=== PATIENT | female | born 1950 | race Caucasian/White ===

== ENCOUNTER → 2017-08-24 | Outpatient (CLI) | payer OTHER, MEDICARE ==
[~2017-08-24] MED LIST: ASPEC81 PO; ATOR-26 PO; FEXO1TAB49 PO; FURO-85 PO; LEVO125T72 PO; LISI40TA PO; MISCCAP80 PO; PANT40TA PO
--- NOTE | 2017-08-24 10:32 | DIAGNOSTIC IMAGING REPORT ---
L PELVIS UNILATERAL HIP 1 VIEW CLINICAL HISTORY: LEFT HIP PAIN pain COMPARISON: None. DISCUSSION: Moderate degenerative narrowing left and to lesser extent right hip joint space. No evidence for acetabular protrusion. No evidence for fracture or dislocation. Mild degenerative changes of the sacroiliac joints. There is no evidence for soft tissue swelling. IMPRESSION: Moderate degenerative change left hip. No acute posttraumatic abnormality. The above report was generated using voice recognition software. It may contain grammatical, syntax or spelling errors. Electronically signed by: Hudson Up M.D. 08/24/2017 10:30 AM Dictated Date/Time: 08/24/2017 10:30 AM
== END | disposition home or self-care (01) ==
LOC: C.RDSM 15:04
PROVIDERS: ATTEND Physician Assistant
DX: M16.12 Unilateral primary osteoarthritis, left hip (principal)

== ENCOUNTER → 2018-04-22 | Outpatient (CLI) | payer OTHER, MEDICARE | END | disposition home or self-care (01) | LOC: C.RDSM 10:16 | PROVIDERS: ATTEND Family Medicine Sports Medicine | DX: M25.561 Pain in right knee (principal); M25.562 Pain in left knee ==

== ENCOUNTER 2019-12-01 00:16 | Inpatient (IN) ==
--- NOTE | 2019-12-01 00:18 | Emergency Department Note ---
History of Present Illness General Chief Complaint: Stroke/CVA Symptoms Stated Complaint: Left sided numbness Source: patient Mode of arrival: ambulatory Limitations: no limitations History of Present Illness Provider Complaint: + weakness, + numbness and + balance problems Onset (ago): hour(s) Last Known Well Time: 23:20 Location: + left arm and + left leg History of same: No Severity: moderate Quality: + weak and + numb Relieved By: + none Exacerbated By: + none Context: + sudden onset On Anticoagulants: No Associated symptoms: no cough, no headaches and no nausea/vomiting Treatments Prior to Arrival: + none Home Medications Home Medications Medication Instructions Recorded Confirmed Type Probiotic Blend 1 cap PO Q OTHER DAY 09/30/19 12/01/19 History amlodipine 10 mg PO QDL 09/30/19 12/01/19 History aspirin [Aspirin Low Dose] 81 mg PO QPM 09/30/19 12/01/19 History atorvastatin 80 mg PO HS 09/30/19 12/01/19 History cholecalciferol (vitamin D3) 5,000 unit PO QDD 09/30/19 12/01/19 History [Vitamin D3] fexofenadine [Charlee Allergy] 180 mg PO QPM 09/30/19 12/01/19 History furosemide 20 mg PO Q OTHER DAY 09/30/19 12/01/19 History levothyroxine 125 mcg PO QAM 09/30/19 12/01/19 History lisinopril 40 mg PO QDL 09/30/19 12/01/19 History nystatin 1 applic TOPICAL DAILY PRN 09/30/19 12/01/19 History pantoprazole 40 mg PO HS 09/30/19 12/01/19 History Allergies Allergy/AdvReac Type Severity Reaction Status Date / Time Penicillins Allergy Mild tongue Verified 12/01/19 00:51 swelling sulfamethoxazole Allergy Mild RASH Verified 12/01/19 00:51 trimethoprim Allergy Mild RASH Verified 12/01/19 00:51 Bactrim Allergy Unknown RASH Verified 02/28/16 13:39 Tetracyclines Allergy Unknown Unknown Verified 12/01/19 00:51 doxycycline AdvReac Mild Rash Verified 12/01/19 00:51 Past Med/Surg History Medical History Anemia Diabetes mellitus, type 2 ? was on metformin for years, taken off 3+yrs ago GERD (gastroesophageal reflux disease) Gout Hyperlipidemia Hypertension Hypothyroidism Morbid obesity with BMI of 50.0-59.9, adult Osteoarthritis Surgical History History of appendectomy History of bilateral tubal ligation History of cholecystectomy History of colonoscopy History of detached retina repair not sure which eye History of shoulder surgery right--bone spur removed History of tooth extraction History of total hysterectomy with bilateral salpingo-oophorectomy (BSO) Family History Grandfather (Maternal) Family history of diabetes mellitus Grandmother (Maternal) Family history of diabetes mellitus Aunt Family hx of colon cancer Other No family history of adverse response to anesthesia Social History Preferred Language: Vietnamese Communication Ability: Effective Zipper Joiner Required: No Beliefs That Will Affect Care: None Current Living Situation: Family Feels Safe at Home: Yes Smoking Status: Never smoker Second Hand Exposure: Yes (parents smoked) ; Hx Alcohol Use: Yes Alcohol type: beer Hx Substance Use: No Review of Systems See HPI for pertinent positives & negatives. and A total of 10 systems reviewed and were otherwise negative Physical Exam Vital Signs: Vital Signs - 24 hr 12/01/19 00:16 12/01/19 00:45 12/01/19 00:50 Temperature 36.7 C Temperature Source Oral Pulse Rate 110 H 93 H 94 H Pulse Rate from Sp O2 Sensor 93 H 97 H Pulse Rhythm Regular Pulse Strength Normal Respiratory Rate 20 Respiratory Effort / Characteristics Non-Labored Respiratory Depth Normal Respiratory Patter n Regular Blood Pressure 206/124 H 186/84 H 203/86 H Blood Pressure Milly n 151 90 126 Blood Pressure Pos ition Lying Pulse Oximetry 98 97 98 Oxygen Delivery Me thod Room Air Sepsis Recent Feve r Within 48 Hours No Sepsis New/Unexpla ined Change in Men sahil Status No Sepsis Action Take n by Nursing No Action Required 12/01/19 00:56 12/01/19 01:01 12/01/19 01:05 Temperature Temperature Source Pulse Rate 91 H 89 81 Pulse Rate from Sp O2 Sensor 95 H 90 82 Pulse Rhythm Pulse Strength Respiratory Rate 18 Respiratory Effort / Characteristics Respiratory Depth Respiratory Patter n Blood Pressure 177/103 H 190/68 H 182/105 H Blood Pressure Milly n 119 115 129 Blood Pressure Pos ition Pulse Oximetry 97 97 97 Oxygen Delivery Me thod Room Air Sepsis Recent Feve r Within 48 Hours Sepsis New/Unexpla ined Change in Men sahil Status Sepsis Action Take n by Nursing 12/01/19 01:22 Temperature Temperature Source Pulse Rate 82 Pulse Rate from Sp O2 Sensor Pulse Rhythm Pulse Strength Respiratory Rate 18 Respiratory Effort / Characteristics Respiratory Depth Respiratory Patter n Blood Pressure 169/109 H Blood Pressure Milly n 129 Blood Pressure Pos ition Pulse Oximetry 97 Oxygen Delivery Me thod Room Air Sepsis Recent Feve r Within 48 Hours Sepsis New/Unexpla ined Change in Men sahil Status Sepsis Action Take n by Nursing Physical Exam: GENERAL: Mild distress, non-toxic. Obese. EYE EXAM: Normal conjunctiva. PERRL, no anisocoria and EOM's grossly intact w/o pain. OROPHARYNX: Dry mucus membranes. Grossly normal dentition. NECK: Supple, no nuchal rigidity, no adenopathy, non-tender. No signs of meningismus. LUNGS: Clear to auscultation. Normal chest wall mechanics. HEART: NSR, no MRG. ABDOMEN: Abdomen soft, non-tender, normo-active bowel sounds, no masses, no rebound or guarding. BACK: No CVA TTP. SKIN: No rashes and no bruising. UPPER EXTREMITIES: Upper extremities are grossly normal. LOWER EXTREMITIES: Grossly normal, no edema. NEURO EXAM: A&O x3, cranial nerves II-XII grossly intact, normal speech, moves all 4 extremities on command w/o issue with exception of 3 out of 5 weakness in the left lower extremity and subjective numbness left upper and left lower extremity. Good [id number] bilaterally. Course Course Prior to patient arrival the patient was made a stroke alert given the acute onset within a possible TPA window not on anticoagulants with last known well at 11:20 PM for left-sided deficits. Orders were placed. Tele-stroke was paged. I did speak with Dr. Villanueva [facility] tele-stroke neurology. Patient was seen and evaluated the bedside. A full history and physical exam was performed. Patient was seen and evaluated by Dr. Villanueva. I did speak with stat read and the patient had negative imaging studies. Dr. Villanueva would like TPA given. I did speak with the pharmacist a weight was entered and the patient was ordered TPA. Patient was admitted to the medicine service. [facility]. Administered Medications Ioversol (Optiray 320 125ml) 125 ml IV ONCE PRN PRN Reason: Interaction Checking Stop: 12/05/19 00:35 Last Admin: 12/01/19 00:37 Dose: 118 ml Documented by: [id number] Discontinued Medications Alteplase, Recombinant 9 mg/ (Syringe) 9 mls @ 9 mls/min IV ONCE ONE Stop: 12/01/19 01:02 Last Admin: 12/01/19 01:07 Dose: 9 mls/min Documented by: [id number] Cosigned by: [id number] Alteplase, Recombinant 81 mg/ (EMPTY BAG) 81 mls @ 81 mls/hr IV ONCE ONE Stop: 12/01/19 01:03 Last Admin: 12/01/19 01:07 Dose: 81 mls/hr Documented by: [id number] Cosigned by: [id number] Labetalol HCl (Normodyne) Confirm Administered Dose 5 mg IV .STK-MED ONE Stop: 12/01/19 00:56 Last Admin: 12/01/19 01:08 Dose: Not Given Documented by: [id number] Labetalol HCl (Normodyne) Confirm Administered Dose 10 mg IV .STK-MED ONE Stop: 12/01/19 00:58 Last Admin: 12/01/19 01:08 Dose: 10 mg Documented by: [id number] Cosigned by: [id number] Medical Decision Making Differential Diagnosis + delirium, + cerebrovascular accident, + transient cerebral ischemia, + CVA and + TIA Metabolic abnormality, hyperglycemia, among others. Medical Records Attestation: I reviewed the patient's medical records. Home Medications Current Medication List: was personally reviewed by me Laboratory Data Attestation: I reviewed the patient's lab results. Result diagrams: 12/01/19 00:38 12/01/19 00:38 Lab Results 12/01/19 12/01/19 12/01/19 Range/Units 00:38 00:38 00:38 WBC 8.17 (4.8-10.8) K/uL RBC 4.57 (4.2-5.4) M/uL Hgb 11.1 L (12.0-16.0) g/dL Hct 36.5 L (37-47) % MCV 79.9 L (80-100) fL MCH 24.3 L (25-34) pg MCHC 30.4 L (32-36) g/dL RDW Std Deviation 63.1 H (36.4-46.3) fL RDW Coeff of Jyoti 21.8 H (11.5-14.5) % Plt Count 252 (130-400) K/uL MPV 9.4 (7.4-10.4) fL Immature Gran % (Auto) 0.1 % Neut % (Auto) 63.1 % Lymph % (Auto) 26.3 % [place] % (Auto) 6.6 % Eos % (Auto) 3.5 % Baso % (Auto) 0.4 % Immature Gran # (Auto) 0.01 (0.00-0.02) K/uL Neut # (Auto) 5.15 (1.4-6.5) K/uL Lymph # (Auto) 2.15 (1.2-3.4) K/uL [place] # (Auto) 0.54 (0.11-0.59) K/uL Eos # (Auto) 0.29 (0-0.5) K/uL Baso # (Auto) 0.03 (0-0.2) K/uL Anisocytosis Present Ovalocytes 1+ PT 10.9 (9.0-12.0) Seconds INR 1.0 (0.9-1.1) APTT 25.0 (21.0-31.0) Seconds PTT Ratio 0.9 Sodium 138 (136-145) mmol/L Potassium 3.8 (3.5-5.1) mmol/L Chloride 105 (98-107) mmol/L Carbon Dioxide 26 (21-32) mmol/L Anion Gap 7.0 (3-11) BUN 13 (7-18) mg/dl Creatinine 1.30 H (0.6-1.2) mg/dl Est Cr Clr Drug Dosing 57.1 ml/min Est GFR ( Amer) 48.1 Est GFR (Non-Af Amer) 41.5 BUN/Creatinine Ratio 10.2 (10-20) Glucose 144 H (70-99) mg/dl POC Glucose (70-99) mg/dl Calcium 8.8 (8.5-10.1) mg/dl Magnesium 1.9 (1.8-2.4) mg/dl Total Bilirubin 0.3 (0.2-1) mg/dl AST 14 L (15-37) U/L ALT 23 (12-78) U/L Alkaline Phosphatase 112 (45-117) U/L Troponin I < 0.015 (0-0.045) ng/ml Total Protein 7.1 (6.4-8.2) gm/dl Albumin 3.1 L (3.4-5.0) gm/dl Globulin 4.0 (2.5-4.0) gm/dl Albumin/Globulin Ratio 0.8 L (0.9-2) 12/01/19 Range/Units 00:40 WBC (4.8-10.8) K/uL RBC (4.2-5.4) M/uL Hgb (12.0-16.0) g/dL Hct (37-47) % MCV (80-100) fL MCH (25-34) pg MCHC (32-36) g/dL RDW Std Deviation (36.4-46.3) fL RDW Coeff of Jyoti (11.5-14.5) % Plt Count (130-400) K/uL MPV (7.4-10.4) fL Immature Gran % (Auto) % Neut % (Auto) % Lymph % (Auto) % [place] % (Auto) % Eos % (Auto) % Baso % (Auto) % Immature Gran # (Auto) (0.00-0.02) K/uL Neut # (Auto) (1.4-6.5) K/uL Lymph # (Auto) (1.2-3.4) K/uL [place] # (Auto) (0.11-0.59) K/uL Eos # (Auto) (0-0.5) K/uL Baso # (Auto) (0-0.2) K/uL Anisocytosis Ovalocytes PT (9.0-12.0) Seconds INR (0.9-1.1) APTT (21.0-31.0) Seconds PTT Ratio Sodium (136-145) mmol/L Potassium (3.5-5.1) mmol/L Chloride (98-107) mmol/L Carbon Dioxide (21-32) mmol/L Anion Gap (3-11) BUN (7-18) mg/dl Creatinine (0.6-1.2) mg/dl Est Cr Clr Drug Dosing ml/min Est GFR ( Amer) Est GFR (Non-Af Amer) BUN/Creatinine Ratio (10-20) Glucose (70-99) mg/dl POC Glucose 134 H (70-99) mg/dl Calcium (8.5-10.1) mg/dl Magnesium (1.8-2.4) mg/dl Total Bilirubin (0.2-1) mg/dl AST (15-37) U/L ALT (12-78) U/L Alkaline Phosphatase (45-117) U/L Troponin I (0-0.045) ng/ml Total Protein (6.4-8.2) gm/dl Albumin (3.4-5.0) gm/dl Globulin (2.5-4.0) gm/dl Albumin/Globulin Ratio (0.9-2) Imaging Data Radiologist's Impression: Radiology results as stated below per my review in the radiologist's interpretation: CT head: No ICH, mass-effect, or edema. No evidence of acute territorial infarct. Chronic small vessel ischemic changes in left cerebral white matter. No skull fracture. Sinuses mastoid air cells are clear. CTA neck: No occlusion or high-grade stenosis in the cervical carotid or vertebral arteries. CTA head: Intracranial atherosclerosis. No central large vessel occlusion, high-grade stenosis, aneurysm, or vascular malformation. ECG Data Attestation: I personally reviewed and interpreted this ECG as follows: Indication: other (CVA work-up) Rate (beats per minute): 105 Rhythm: sinus tachycardia Findings: + other (Wide QRS, right bundle branch block pattern, T WI anteriorly) Blood Pressure Blood Pressure Findings: Elevated blood pressure Blood Pressure Disposition: further management by hospitalist [facility] Narrative I did receive a medical command call due to concern for left-sided deficits within a TPA window. Last known well was 1120 the patient did have left-sided numbness with associated poor [id number] of the left upper extremity as well as left lower extremity weakness. I did page a code stroke in tele-stroke was paged. I did speak with the on-call tele-stroke neurologist. The patient sub sequently presented went to CT scan. I did speak and evaluate the patient at the bedside when she returned. [id number] glucose was 130s. The patient was hypertensive. I did speak with the on-call radiologist that the patient had negative scans of the head and neck. Patient was ordered TPA at the [facility] and teen counselor of the tele-stroke neurologist. The patient did receive the TPA. I did speak the on-call hospitalist agreed to further evaluate treat the patient. The patient's blood pressure did improve with the IV labetalol ordered. Patient has virtually normal H&H. The patient has normal white count. Kidney function is currently at baseline. Troponin not detectable. EKG shows sinus tachycardia. Patient was admitted to the medicine service. Cardiac monitoring: An order was placed for continuous cardiac monitoring. The monitor shows a rate of 82 with sinus rhythm. Impression & Plan Acute cerebrovascular accident, Hypertension, Left leg weakness Critical Care Time Critical Care Time: Yes Total Critical Care Time: 55 I have personally spent 55 minutes of critical care time in direct management of this patient. This includes bedside care, interpretation of diagnostic studies, and testing, discussion with consultants, patient, and family members, and other require inpatient management activities. This 55 minutes is in excess of all separately billable procedures. Discharge Plan Visit Data Chief Complaint: Stroke/CVA Symptoms Stated Complaint: Left sided numbness ED Provider: Fabrice Clemons Discharge Problem: Acute cerebrovascular accident, Hypertension, Left leg weakness Forms Stand Alone Forms: My [facility] [employer] Prescriptions Prescriptions: No Action atorvastatin 80 mg Tablet 80 mg PO HS RF: 0 fexofenadine [Charlee Allergy] 180 mg Tablet 180 mg PO QPM RF: 0 aspirin [Aspirin Low Dose] 81 mg Tablet,Delayed Release (Dr/Ec) 81 mg PO QPM RF: 0 amlodipine 10 mg Tablet 10 mg PO QDL RF: 0 pantoprazole 40 mg Tablet,Delayed Release (Dr/Ec) 40 mg PO HS RF: 0 levothyroxine 125 mcg Tablet 125 mcg PO QAM RF: 0 nystatin 100,000 unit/gram Cream 1 applic TOPICAL DAILY PRN (Reason: Rash) RF: 0 furosemide 20 mg Tablet 20 mg PO Q OTHER DAY RF: 0 lisinopril 40 mg Tablet 40 mg PO QDL RF: 0 cholecalciferol (vitamin D3) [Vitamin D3] 125 mcg (5,000 unit) Tablet 5,000 unit PO QDD RF: 0 Probiotic Blend 2 billion cell-50 mg Capsule 1 cap PO Q OTHER DAY RF: 0 Discharge Problem: Hypertension Qualifiers: Hypertension type: unspecified Qualified Code(s): I10 - Essential (primary) hypertension
[2019-12-01] MEDS ORDERED: OPTIRAY 320 125ml IV PRN (00:36)
[2019-12-01 00:50] LABS: Basophils # (auto) 0.03 K/uL (0-0.2); Basophils % (auto) 0.4 %; Eosinophils # (auto) 0.29 K/uL (0-0.5); Eosinophils % (auto) 3.5 %; Hematocrit (blood only) 36.5 % (37-47); Hemoglobin 11.1 g/dL (12.0-16.0); Immature Granulocytes # (auto) 0.01 K/uL (0.00-0.02); Immature Granulocytes % (auto) 0.1 %; Lymphocytes # (auto) 2.15 K/uL (1.2-3.4); Lymphocytes % (auto) 26.3 %; Mean Corpuscular Hemoglobin 24.3 pg (25-34); Mean Corpuscular Hgb Conc 30.4 g/dL (32-36); Mean Corpuscular Volume 79.9 fL (80-100); Mean Platelet Volume 9.4 fL (7.4-10.4); Monocytes # (auto) 0.54 K/uL (0.11-0.59); Monocytes % (auto) 6.6 %; Neutrophils # (auto) 5.15 K/uL (1.4-6.5); Neutrophils % (auto) 63.1 %; Platelet Count 252 K/uL (130-400); RDW Coefficient of Variation 21.8 % (11.5-14.5); RDW Standard Deviation 63.1 fL (36.4-46.3); Red Blood Count 4.57 M/uL (4.2-5.4); White Blood Count 8.17 K/uL (4.8-10.8)
[2019-12-01] MEDS ORDERED: TPA for Stroke IV STA (00:51)
[2019-12-01] MEDS ORDERED: LABETALOL HCL IV 5 MG/ML 20ML IV STA ×3 (00:53→11:34)
[2019-12-01] MEDS ORDERED: LABETALOL HCL IV 5 MG/ML 20ML IV PRN ×4 (00:54→22:20)
[2019-12-01] MEDS ORDERED: LABETALOL HCL IV 5 MG/ML 20ML IV ONE ×3 (00:55→11:36)
[2019-12-01 01:00] LABS: Partial Thromboplastin Ratio 0.9; Prothrombin Time 10.9 Seconds (9.0-12.0)
[2019-12-01] MEDS ORDERED: Alteplase Bolus 9 MG in SYRINGE 0 ML IV ONE (01:01)
[2019-12-01] MEDS ORDERED: ALTEPLASE, RECOMBINANT 81 MG in EMPTY BAG 0 ML IV ONE (01:02)
[2019-12-01] MEDS ORDERED: PRIMARY PLUMSET, PE LINED TUBING, 113 IN, NON-DEHP (2260-0500) IV ONE (01:02)
[2019-12-01 01:13] LABS: Alanine Aminotransferase 23 U/L (12-78); Albumin Level 3.1 gm/dl (3.4-5.0); Aspartate Aminotransferase 14 U/L (15-37); BUN Creatinine Ratio 10.2 (10-20); Blood Urea Nitrogen 13 mg/dl (7-18); Calcium 8.8 mg/dl (8.5-10.1); Carbon Dioxide 26 mmol/L (21-32); Chloride 105 mmol/L (98-107); Creatinine Clr Calc Pharmacy 57.1 ml/min; Est GFR (African American) 48.1; Est GFR (Non-African American) 41.5; Glucose 144 mg/dl (70-99); Magnesium 1.9 mg/dl (1.8-2.4); Potassium 3.8 mmol/L (3.5-5.1); Sodium 138 mmol/L (136-145)
[2019-12-01 01:14] LABS: Anisocytosis Present; Ovalocytes 1+
[2019-12-01 01:18] LABS: Albumin Globulin Ratio 0.8 (0.9-2); Alkaline Phosphatase 112 U/L (45-117); Bilirubin,Total 0.3 mg/dl (0.2-1); Total Protein 7.1 gm/dl (6.4-8.2); Troponin I < 0.015 ng/ml (0-0.045)
--- NOTE | 2019-12-01 02:05 | History & Physical Report ---
Date of Service December 01, 2019 Assessment & Plan (1) Acute cerebrovascular accident: Probable right MCA infarct Possible aspirin failure hypertension, elevated secondary to above hyperlipidemia, on statin Rx DM2, diet-controlled, well-controlled as of recent outpatient hemoglobin A1c of 6.18 October 2018 hypothyroidism, euthyroid as of today's TSH CRI, creatinine at baseline chronic anemia secondary to CKD, hemoglobin at baseline Oral cavity bleeding post TPA, recent dental surgery, hemoglobin currently stable ICU monitoring post TPA Neurochecks Permissive hypertension for now Labetalol as needed; consider Nicardipine drip if w/ persistent elevation > 185/110. Stroke work-up consisting of updating lipid profile, TTE, MRI/MRA brain Repeat CT head 24 hours post TPA administration Neurology consult RE CVA status post TPA Considered DAPT for secondary stroke prophylaxis if without bleeding concerns post TPA and work-up negative for embolic CVA. ISS BG goal [id number], carb count coverage Local measures for oral cavity bleeding, trend H&H, transfuse PRBC if hemoglobin less than 8 and or for symptomatic anemia DVT prophylaxis. SCDs 24 hours post TPA Consider pharmacologic anticoagulation with Heparin subcutaneous if hemoglobin stable; no ICH on follow-up head CT 24 hours and oral cavity bleeding resolved 24 hours post TPA. Text document was generated using HZO voice recognition software. It may contain grammatical or spelling errors. Kindly contact undersigned for clarification of any documentation item in question. History of Present Illness CRI Chief Complaint: Left-sided weakness Primary Care Provider: Fany Mccartney DO History obtained from patient, family, and records. Medical history significant for hypertension, hyperlipidemia, hypothyroidism, GERD, CRI (baseline creatinine 1.3 ), chronic anemia (baseline hemoglobin of 11), DM 2 diet-controlled. Recent confinement 2003 for atypical chest pain. Normal stress echo. Around 11 PM last night, patient noted sudden onset left-sided weakness/numbness while on the commode. Some dizziness. No headache symptoms. No chest pain, no S OB. No prior episodes. Stroke alert called upon arrival at the ER. IV TPA administered following recommendations of [facility] tele-neurologist. Left-sided oral cavity bleeding noted at the ER post TPA administration. History dental surgery 4 days ago. Improvement of left-sided weakness as per patient. 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 Allergies Allergy/AdvReac Type Severity Reaction Status Date / Time Penicillins Allergy Mild tongue Verified 12/01/19 00:51 swelling sulfamethoxazole Allergy Mild RASH Verified 12/01/19 00:51 trimethoprim Allergy Mild RASH Verified 12/01/19 00:51 Bactrim Allergy Unknown RASH Verified 02/28/16 13:39 Tetracyclines Allergy Unknown Unknown Verified 12/01/19 00:51 doxycycline AdvReac Mild Rash Verified 12/01/19 00:51 Home Medications Home Medications Medication Instructions Recorded Confirmed Type Probiotic Blend 1 cap PO Q OTHER DAY 09/30/19 12/01/19 History amlodipine 10 mg PO QDL 09/30/19 12/01/19 History aspirin [Aspirin Low Dose] 81 mg PO QPM 09/30/19 12/01/19 History atorvastatin 80 mg PO HS 09/30/19 12/01/19 History cholecalciferol (vitamin D3) 5,000 unit PO QDD 09/30/19 12/01/19 History [Vitamin D3] fexofenadine [Charlee Allergy] 180 mg PO QPM 09/30/19 12/01/19 History furosemide 20 mg PO Q OTHER DAY 09/30/19 12/01/19 History levothyroxine 125 mcg PO QAM 09/30/19 12/01/19 History lisinopril 40 mg PO QDL 09/30/19 12/01/19 History nystatin 1 applic TOPICAL DAILY PRN 09/30/19 12/01/19 History pantoprazole 40 mg PO HS 09/30/19 12/01/19 History Past Med/Surg History Medical History Anemia Diabetes mellitus, type 2 ? was on metformin for years, taken off 3+yrs ago GERD (gastroesophageal reflux disease) Gout Hyperlipidemia Hypertension Hypothyroidism Morbid obesity with BMI of 50.0-59.9, adult Osteoarthritis Surgical History History of appendectomy History of bilateral tubal ligation History of cholecystectomy History of colonoscopy History of detached retina repair not sure which eye History of shoulder surgery right--bone spur removed History of tooth extraction History of total hysterectomy with bilateral salpingo-oophorectomy (BSO) Family History Grandfather (Maternal) Family history of diabetes mellitus Grandmother (Maternal) Family history of diabetes mellitus Aunt Family hx of colon cancer Other No family history of adverse response to anesthesia Social History Preferred Language: Persian Communication Ability: Effective Battery Hand Required: No Beliefs That Will Affect Care: None Current Living Situation: Family Current Living Situation Comment: lives with son and grandsons Other Information That Helps Us Care for You: No Feels Safe at Home: Yes Safety Concerns: Feels Safe At This Time Smoking Status: Unknown if ever smoked Hx Alcohol Use: No Hx Substance Use: No Review of Systems Review of Systems: As per HPI, all 10 systems reviewed, all other ROS negative Physical Exam Physical Exam: GENERAL: Comfortable, morbidly obese, slightly anxious, muffled speech from gauze in the mouth, no respiratory distress SKIN: Pallor , warm HEENT: Pale palpebral conjunctivae, no ptosis, blood soaked gauze per orem, dried blood right angle of the mouth NECK : Supple, short neck, no tenderness CHEST : Decreased breath sounds , no tenderness HEART : RRR, no obvious murmurs ABDOMEN: Some distention, nontender EXTREMITIES : Minimal LE swelling, no LE tenderness, no other conspicuous deformities noted NEUROLOGIC : Coherent, no facial asymmetry, MMTs BUE 4/5 Results & Data Vital Signs (Past 12 Hours) Vital Signs Temp Pulse Resp BP Pulse Ox 12/01/19 01:52 81 20 166/93 H 96 12/01/19 01:37 79 20 174/88 H 97 12/01/19 01:22 82 18 169/109 H 97 12/01/19 01:05 81 18 182/105 H 97 12/01/19 01:01 89 190/68 H 97 12/01/19 00:56 91 H 177/103 H 97 12/01/19 00:50 94 H 203/86 H 98 12/01/19 00:45 93 H 186/84 H 97 12/01/19 00:16 36.7 C 110 H 20 206/124 H 98 Laboratory Results Laboratory Results WBC 8.17 K/uL (4.8-10.8) 12/01/19 00:38 RBC 4.57 M/uL (4.2-5.4) 12/01/19 00:38 Hgb 11.1 g/dL (12.0-16.0) L 12/01/19 00:38 Hct 36.5 % (37-47) L 12/01/19 00:38 MCV 79.9 fL (80-100) L 12/01/19 00:38 MCH 24.3 pg (25-34) L 12/01/19 00:38 MCHC 30.4 g/dL (32-36) L 12/01/19 00:38 RDW Std Deviation 63.1 fL (36.4-46.3) H 12/01/19 00:38 RDW Coeff of Jyoti 21.8 % (11.5-14.5) H 12/01/19 00:38 Plt Count 252 K/uL (130-400) 12/01/19 00:38 MPV 9.4 fL (7.4-10.4) 12/01/19 00:38 Immature Gran % (Auto) 0.1 % 12/01/19 00:38 Neut % (Auto) 63.1 % 12/01/19 00:38 Lymph % (Auto) 26.3 % 12/01/19 00:38 Avery % (Auto) 6.6 % 12/01/19 00:38 Eos % (Auto) 3.5 % 12/01/19 00:38 Baso % (Auto) 0.4 % 12/01/19 00:38 Immature Gran # (Auto) 0.01 K/uL (0.00-0.02) 12/01/19 00:38 Neut # (Auto) 5.15 K/uL (1.4-6.5) 12/01/19 00:38 Lymph # (Auto) 2.15 K/uL (1.2-3.4) 12/01/19 00:38 Avery # (Auto) 0.54 K/uL (0.11-0.59) 12/01/19 00:38 Eos # (Auto) 0.29 K/uL (0-0.5) 12/01/19 00:38 Baso # (Auto) 0.03 K/uL (0-0.2) 12/01/19 00:38 Anisocytosis Present 12/01/19 00:38 Ovalocytes 1+ 12/01/19 00:38 PT 10.9 Seconds (9.0-12.0) 12/01/19 00:38 INR 1.0 (0.9-1.1) 12/01/19 00:38 APTT 25.0 Seconds (21.0-31.0) 12/01/19 00:38 PTT Ratio 0.9 12/01/19 00:38 Sodium 138 mmol/L (136-145) 12/01/19 00:38 Potassium 3.8 mmol/L (3.5-5.1) 12/01/19 00:38 Chloride 105 mmol/L (98-107) 12/01/19 00:38 Carbon Dioxide 26 mmol/L (21-32) 12/01/19 00:38 Anion Gap 7.0 (3-11) 12/01/19 00:38 BUN 13 mg/dl (7-18) 12/01/19 00:38 Creatinine 1.30 mg/dl (0.6-1.2) H 12/01/19 00:38 Est Cr Clr Drug Dosing 57.1 ml/min 12/01/19 00:38 Est GFR ( Amer) 48.1 12/01/19 00:38 Est GFR (Non-Af Amer) 41.5 12/01/19 00:38 BUN/Creatinine Ratio 10.2 (10-20) 12/01/19 00:38 Glucose 144 mg/dl (70-99) H 12/01/19 00:38 POC Glucose 134 mg/dl (70-99) H 12/01/19 00:40 Calcium 8.8 mg/dl (8.5-10.1) 12/01/19 00:38 Magnesium 1.9 mg/dl (1.8-2.4) 12/01/19 00:38 Total Bilirubin 0.3 mg/dl (0.2-1) 12/01/19 00:38 AST 14 U/L (15-37) L 12/01/19 00:38 ALT 23 U/L (12-78) 12/01/19 00:38 Alkaline Phosphatase 112 U/L (45-117) 12/01/19 00:38 Troponin I < 0.015 ng/ml (0-0.045) 12/01/19 00:38 Total Protein 7.1 gm/dl (6.4-8.2) 12/01/19 00:38 Albumin 3.1 gm/dl (3.4-5.0) L 12/01/19 00:38 Globulin 4.0 gm/dl (2.5-4.0) 12/01/19 00:38 Albumin/Globulin Ratio 0.8 (0.9-2) L 12/01/19 00:38 TSH 1.360 uIu/ml (0.300-4.500) 12/01/19 00:38 Blood Type O Positive 12/01/19 00:38 Antibody Screen NEGATIVE 12/01/19 00:[address] head initial read: No ICH, mass-effect, or edema. Chronic small vessel ischemic changes. CT angio head initial read: Intracranial atherosclerosis. CT angiogram neck initial read: No occlusion or high-grade stenosis in the cervical carotid or vertebral arteries. Chest x-ray as per my interpretation: Cardiomegaly, no congestion EKG as per my interpretation : Rate 105, sinus tachycardia, normal axis, right bundle branch block, inferolateral ischemia
[2019-12-01] MEDS ORDERED: HydrALAZINE HCL 20 MG/ML VIAL IV STA (02:30)
[2019-12-01] MEDS ORDERED: HYDROmorphone INJ 0.5 MG/0.5 ML SYR IV STA (02:39)
[2019-12-01] MEDS ORDERED: GLUCOSE 10 TABS/TUBE PO PRN (03:23)
[2019-12-01] MEDS ORDERED: PROMETHAZINE HCL 12.5 MG in SODIUM CHLORIDE 0.9% 50 ML IV PRN (03:23)
[2019-12-01] MEDS ORDERED: ICU PROTOCOL FOR HYPERGLYCEMIA PRN (03:23)
[2019-12-01] MEDS ORDERED: DEXTROSE 50% 50 ML SYRINGE IV PRN (03:23)
[2019-12-01] MEDS ORDERED: ACID PO SCH (03:23)
[2019-12-01] MEDS ORDERED: ACETAMINOPHEN 325 MG TAB PO PRN (03:23)
[2019-12-01] MEDS ORDERED: LORazepam 0.25 MG/0.5 ML VIAL IV PRN (03:23)
[2019-12-01] MEDS ORDERED: TRAMADOL HCL 50 MG TABLET PO PRN (03:23)
[2019-12-01] MEDS ORDERED: CARBOHYDRATES FOR HYPOGLYCEMIA PO PRN (03:23)
[2019-12-01] MEDS ORDERED: [UNRECOGNIZED DRUG - OTHER] PO SCH (03:23)
[2019-12-01] MEDS ORDERED: GLUCOSE 40% GEL 15 GM TUBE PO PRN (03:23)
[2019-12-01] MEDS ORDERED: HYDROmorphone INJ 0.5 MG/0.5 ML SYR IV PRN (03:23)
[2019-12-01] MEDS ORDERED: GLUCAGON FOR INJ 1 MG VIAL SQ PRN (03:23)
[2019-12-01] MEDS ORDERED: LACTATED RINGER'S 1,000 ML IV SCH (03:23)
[2019-12-01] MEDS ORDERED: PHARMACIST DISCHARGE MED REC CONSULT PRN (03:30)
--- NOTE | 2019-12-01 03:49 | Critical Care Consultation ---
Date of Consultation December 01, 2019 Assessment & Plan (1) Acute cerebrovascular accident: Reason Critically Ill: 69-year-old female presents with left-sided weakness, stroke alert initiated and patient received TPA, admitted to ICU for 24-hour post TPA administration protocol Neuro - [facility] ICU: Negative Acute CVApatient with left-sided weakness and numbness, initial NIHSS of 2, now improved following TPA administration at 0107 this a.m. -CT head and CTA head and neck negative -Patient experienced headache following TPA administration, repeat CT head negative for acute process -First 24-hour TPA protocol, repeat CT at 24 hours -Speech, OT, PT -Neurology consulted, follow-up recs -Frequent neurological exams, patient remained in ICU for first 24 hours following TPA Cardiac - Currently sinus rhythm and hemodynamically stable, continue to monitor on telemetry HTNwe will allow permissive hypertension for now, restart home meds when appropriate Respiratory - No history respiratory disease, maintaining sats on nasal cannula, continue to monitor on pulse ox GI - N.p.o. for now, speech for swallow RENAL/LYTES - AKIcreatinine 1.3, no prior baseline -Continue to monitor with routine BMPs and trend -Continue IV fluid resuscitation Replete electrolytes and monitor with routine BMPs - Strict I's and O's ENDO - Diabetes type 2hemoglobin A1c pending -Continue sliding scale and Lantus, ICU hypoglycemic protocol Continue home dose Synthroid HEME - H&H stable, monitor for bleeding following TPA administration ID - No indication for infectious process at this time LINES/IV ACCESS - Peripheral IVs DVT PROPHYLAXIS - SCDs, holding anticoagulation for TPA Thank you for allowing us to participate in the care of this patient. Please refer to my attending physician's documentation for any further recommendations. (2) Hypertension: (3) Hypothyroidism: (4) Hyperlipidemia: (5) Gout: (6) GERD (gastroesophageal reflux disease): (7) Diabetes mellitus, type 2: History of Present Illness Attending Physician: Anusha Justin MD History of Present Illness Ms. Rojas is a 69-year-old female with past medical history diabetes type 2, HTN, hypothyroidism, morbid obesity with BMI 50, HLD, gout, GERD who presented to the emergency department with strokelike symptoms. Patient complained of left hand numbness and left leg weakness that started at 11:20 PM. Initial NIH SS of 2. Stroke alert was initiated and patient was taken for CT head and CTA head and neck which were negative. She was evaluated via [facility] telemetry stroke neurologist who recommended TPA administration. TPA was administered at 0107 11/30. Shortly after administration patient did develop a headache and was taken for a stat CT head Noncon which was negative. Patient now presents to the ICU and is hemodynamically stable. She is currently without neurological deficit with NIHSS of 0. She still complains of a mild headache. She denies syncope, weakness or numbness, nausea or vomiting, shortness of breath, chest pain, palpitations, abdominal pain. Patient to remain in ICU following first 24-hour TPA protocol. Allergies Allergy/AdvReac Type Severity Reaction Status Date / Time Penicillins Allergy Mild tongue Verified 12/01/19 00:51 swelling sulfamethoxazole Allergy Mild RASH Verified 12/01/19 00:51 trimethoprim Allergy Mild RASH Verified 12/01/19 00:51 Bactrim Allergy Unknown RASH Verified 02/28/16 13:39 Tetracyclines Allergy Unknown Unknown Verified 12/01/19 00:51 doxycycline AdvReac Mild Rash Verified 12/01/19 00:51 Home Medications Home Medications Medication Instructions Recorded Confirmed Type Probiotic Blend 1 cap PO Q OTHER DAY 09/30/19 12/01/19 History amlodipine 10 mg PO QDL 09/30/19 12/01/19 History aspirin [Aspirin Low Dose] 81 mg PO QPM 09/30/19 12/01/19 History atorvastatin 80 mg PO HS 09/30/19 12/01/19 History cholecalciferol (vitamin D3) 5,000 unit PO QDD 09/30/19 12/01/19 History [Vitamin D3] fexofenadine [Charlee Allergy] 180 mg PO QPM 09/30/19 12/01/19 History furosemide 20 mg PO Q OTHER DAY 09/30/19 12/01/19 History levothyroxine 125 mcg PO QAM 09/30/19 12/01/19 History lisinopril 40 mg PO QDL 09/30/19 12/01/19 History nystatin 1 applic TOPICAL DAILY PRN 09/30/19 12/01/19 History pantoprazole 40 mg PO HS 09/30/19 12/01/19 History Patient History Medical History Anemia Diabetes mellitus, type 2 ? was on metformin for years, taken off 3+yrs ago GERD (gastroesophageal reflux disease) Gout Hyperlipidemia Hypertension Hypothyroidism Morbid obesity with BMI of 50.0-59.9, adult Osteoarthritis Surgical History History of appendectomy History of bilateral tubal ligation History of cholecystectomy History of colonoscopy History of detached retina repair not sure which eye History of shoulder surgery right--bone spur removed History of tooth extraction History of total hysterectomy with bilateral salpingo-oophorectomy (BSO) Family History Grandfather (Maternal) Family history of diabetes mellitus Grandmother (Maternal) Family history of diabetes mellitus Aunt Family hx of colon cancer Other No family history of adverse response to anesthesia Social History Preferred Language: Persian Communication Ability: Effective 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 [employer]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: No Beliefs That Will Affect Care: None Current Living Situation: Family Current Living Situation Comment: lives with son and grandsons Other Information That Helps Us Care for You: No Feels Safe at Home: Yes Safety Concerns: Feels Safe At This Time Smoking Status: Unknown if ever smoked Hx Alcohol Use: No Hx Substance Use: No Review of Systems Review of Systems: All systems reviewed & are unremarkable except as noted in HPI & below Physical Exam Constitutional: + morbidly obese and comfortable Eyes: PERRL, conjunctivae normal, anicteric sclerae ENMT: external ear and nose normal, oropharynx normal Mild bleeding at u pper gumline Neck: trachea midline, no thyromegaly Respiratory: normal respiratory effort, lungs clear to auscultation Cardiovascular: RRR, no murmur, no edema Heart Sounds: normal S1 and normal S2 Vessels: no JVD Extremities: normal capillary refill Gastrointestinal (Abdomen): Abdomen obese, soft, nontender, normal bowel sounds Musculoskeletal: no cyanosis or clubbing, extremities motor strength 5/5 Skin: no rashes, warm and dry Neurologic: PERRL, EOMI, accommodation nl, no face palsy, no dysarthria normal touch/pain/proprioception and moves all extremities Motor/Sensory: no pronator drift and no sensory deficit Cranial Nerves: no nystagmus Psychiatric: A+Ox3, euthymic affect Results & Data ([facility]) Vital Signs (Past 12 Hours) Vital Signs Temp Pulse Pulse Resp BP BP Pulse Ox 12/01/19 02:47 78 20 191/69 H 95 12/01/19 02:37 86 15 207/90 H 97 12/01/19 02:07 84 20 193/73 H 96 12/01/19 01:52 81 20 166/93 H 96 12/01/19 01:37 79 20 174/88 H 97 12/01/19 01:22 82 18 169/109 H 97 12/01/19 01:05 81 18 182/105 H 97 12/01/19 01:01 89 190/68 H 97 12/01/19 00:56 91 H 177/103 H 97 12/01/19 00:50 94 H 203/86 H 98 12/01/19 00:45 93 H 186/84 H 97 12/01/19 00:16 36.7 C 110 H 20 206/124 H 98 Coding Level of Care Code 64354 Office/OBS Consult Lvl 5 Diagnoses Acute cerebrovascular accident I63.9 Hypertension I10 Hypothyroidism E03.9 Hyperlipidemia E78.5 Gout M10.9 GERD (gastroesophageal reflux disease) K21.9 Diabetes mellitus, type 2 E11.9
[2019-12-01 04:59] LABS: Basophils # (auto) 0.03 K/uL (0-0.2); Basophils % (auto) 0.3 %; Eosinophils # (auto) 0.07 K/uL (0-0.5); Eosinophils % (auto) 0.7 %; Hematocrit (blood only) 34.5 % (37-47); Hemoglobin 10.5 g/dL (12.0-16.0); Immature Granulocytes # (auto) 0.03 K/uL (0.00-0.02); Immature Granulocytes % (auto) 0.3 %; Lymphocytes # (auto) 1.12 K/uL (1.2-3.4); Lymphocytes % (auto) 11.4 %; Mean Corpuscular Hemoglobin 24.2 pg (25-34); Mean Corpuscular Hgb Conc 30.4 g/dL (32-36); Mean Corpuscular Volume 79.5 fL (80-100); Mean Platelet Volume 9.3 fL (7.4-10.4); Monocytes # (auto) 0.32 K/uL (0.11-0.59); Monocytes % (auto) 3.3 %; Neutrophils # (auto) 8.22 K/uL (1.4-6.5); Platelet Count 236 K/uL (130-400); RDW Coefficient of Variation 21.7 % (11.5-14.5); RDW Standard Deviation 63.1 fL (36.4-46.3); Red Blood Count 4.34 M/uL (4.2-5.4); White Blood Count 9.79 K/uL (4.8-10.8)
[2019-12-01 05:18] LABS: BUN Creatinine Ratio 11.6 (10-20); Calcium 8.5 mg/dl (8.5-10.1); Creatinine Clr Calc Pharmacy 62.5 ml/min; Est GFR (African American) 55.2; Est GFR (Non-African American) 47.7; Potassium 3.8 mmol/L (3.5-5.1)
[2019-12-01 05:25] LABS: Anisocytosis Present; Ovalocytes 1+
[2019-12-01] MEDS: INSULIN ASPART 100 UNITS/ML 3 ML PEN SC SCH ×4 (05:55→21:18)
[2019-12-01] MEDS: LEVOTHYROXINE SODIUM 125 MCG TABLET PO SCH (05:56)
[2019-12-01 06:31] LABS: Estimated Average Glucose 114 mg/dl; Hemoglobin A1C 5.6 % (4.5-5.6)
--- NOTE | 2019-12-01 06:44 | CT Scan Report ---
CT angio head w con HISTORY: CVA symptoms, L sided numbness, dysmetria, LLE wea TECHNIQUE: Multiaxial CT angiography of the head was performed IV contrast: 100 cc Maximum intensi ty projection images were also obtained. A dose lowering technique was utilized adhering to the prin ciples of PIYUSH. COMPARISON: None. FINDINGS: There is no mass, hematoma, midline shift, or acute infarct. Visualized intracranial internal control consultant al carotid arteries, distal vertebral arteries, and basilar artery are widely patent. There is no sig nificant stenosis, occlusion, or aneurysm seen within the bilateral ACAs, MCAs, or bleach plant operator. IMPRESSION: No significant stenosis, occlusion, or aneurysm within the [place] of [place]. Moderate image compromis e due to patient motion. ACT 112: Negative or not required by law. The above report was generated using voice recognition software. It may contain grammatical, syntax or spelling errors. Electronically signed by: Hudson Up M.D. 12/01/2019 6:42 AM
--- NOTE | 2019-12-01 06:45 | CT Scan Report ---
CT angio neck with con HISTORY: Status change CVA symptoms, L sided numbness, dysmetria, LLE wea TECHNIQUE: Multiaxial CT angiography of the neck was performed 100 cc nonionic IV contrast: None. All measurements were calculated based on NASCET criteria. Maximum intensity projection images were also obtained. A dose lowering technique was utilized adhering to the principles of ALARA. COMPARISON STUDY: 02/28/2016 FINDINGS: The aortic arch and proximal great vessels are widely patent. There is no significant sten osis, occlusion, or dissection identified within the bilateral common carotid, internal carotid, or v ertebral arteries. IMPRESSION: No significant stenosis, occlusion, or dissection identified within the carotid or vertebral arteries . Mild atherosclerotic change bilaterally ACT 112: Negative or not required by law. The above report was generated using voice recognition software. It may contain grammatical, syntax or spelling errors. Electronically signed by: Hudson Up M.D. 12/01/2019 6:44 AM
--- NOTE | 2019-12-01 07:04 | CT Scan Report ---
CT head/brain wo con CT DOSE: 537.48 mGy.cm HISTORY: Headache [place] TECHNIQUE: Multiaxial CT images of the head were performed without the use of intravenous contrast. A dose lowering technique was utilized adhering to the principles of ALARA. Comparison: 12/01/2019 Findings: Slight increase in density of the transverse sinuses as well as interhemispheric pain. This is felt to be technical. The calvarium and skull base are intact. The ventricles and sulci are withi n normal limits. There is no mass, hematoma, midline shift, or acute infarct. Impression: No acute intracranial abnormality. No change from the prior exam. ACT 112: Negative or not required by law. The above report was generated using voice recognition software. It may contain grammatical, syntax or spelling errors. Electronically signed by: Hudson Up M.D. 12/01/2019 7:03 AM
--- NOTE | 2019-12-01 07:14 | CT Scan Report ---
HEAD CT NONCONTRAST CT DOSE: HISTORY: Stroke evaluation TECHNIQUE: Multiaxial CT images of the head were performed without the use of intravenous contrast. A utomated exposure control was utilized for this study. A dose lowering technique was utilized adheri ng to the principles of ALARA. Comparison: Head CTA 12/01/2019. Findings: The paranasal sinuses and mastoid air cells are clear. The calvarium and skull base are int act. There is no mass, hematoma, midline shift, acute infarct. White matter hypodensity is nonspecifi c but suggestive of microvascular ischemic change. The ventricles and sulci demonstrate mild age-rela rosalio involutional changes. Impression: No acute intracranial abnormality. Atrophy and microvascular ischemic changes. ACT 112: Negative or not required by law. Electronically signed by: Pradeep Walters M.D. 12/01/2019 7:13 AM
--- NOTE | 2019-12-01 07:48 | XRay Report ---
XR chest 1V portable HISTORY: Hypertension. COMPARISON: Chest 02/28/2016. FINDINGS: The heart remains mildly enlarged. There are no pleural effusions. No pneumothorax. Slight prominence of interstitial markings, unchanged. This is likely chronic. No new focal lung consolidati ons to suggest pneumonia. No evidence for pulmonary edema. IMPRESSION: No significant change compared to the prior study. No acute process. ACT 112: Negative or not required by law. Electronically signed by: Pradeep Walters M.D. 12/01/2019 7:46 AM
[2019-12-01] MEDS ORDERED: METOPROLOL TARTRATE 1 MG/ML VIAL IV STA (09:19)
[2019-12-01] MEDS ORDERED: METOPROLOL TARTRATE 1 MG/ML VIAL IV ONE (09:21)
[2019-12-01] MEDS ORDERED: METOPROLOL TARTRATE 1 MG/ML VIAL IV PRN (10:46)
--- NOTE | 2019-12-01 11:13 | Magnetic Resonance Report ---
MR brain wo con HISTORY: cva TECHNIQUE: Multiplanar multisequence MRI of the brain was performed without the use of contrast. COMPARISON STUDY: None. FINDINGS: Diffusion images demonstrate small foci of acute ischemic exchange underwriting consultant the left and to a les ser extent right lower parietal convexity. There is also 2 foci involving the right occipital lobe. Signal characteristics are otherwise indicated components of chronic small vessel change which are co nsidered unremarkable for age. The ventricular system is midline. Sella and parasellar regions are un remarkable. IMPRESSION: Very small scattered cortical infarcts of the superior parietal lobes bilaterally as well as right oc cipital lobe. 2. This potentially represents a watershed versus embolic type process. 3. Age-related chronic small vessel change with the study otherwise negative. ACT 112: Negative or not required by law. The above report was generated using voice recognition software. It may contain grammatical, syntax or spelling errors. Electronically signed by: Hudson Up M.D. 12/01/2019 11:12 AM
--- NOTE | 2019-12-01 11:22 | Magnetic Resonance Report ---
Brain MRA HISTORY: Stroke. Attention to [place] TECHNIQUE: 3-D [id number] MRA of the brain was performed without contrast. COMPARISON STUDY: Brain MRI 12/01/2019. Head CTA 12/01/2019. FINDINGS: Visualized intracranial internal carotid arteries, distal vertebral arteries, and basilar a rtery are widely patent. There is no significant stenosis, occlusion, or aneurysm seen within the yessy ateral ACAs, MCAs, or vascular sonographer. IMPRESSION: No significant stenosis, occlusion, or aneurysm within the [place]. ACT 112: Negative or not required by law. Electronically signed by: Pradeep Walters M.D. 12/01/2019 11:21 AM
--- NOTE | 2019-12-01 13:36 | Neurology Consultation ---
Date of Consultation December 01, 2019 Assessment & Plan (1) Acute cerebrovascular accident: 1. MRI- small scattered cortical infarcts superior parietal lobes and right occipital lobe and left parietal 2. CTA no sigificant stenosis or occlusion 3. TTE- no ASD 4. once protocol for tPa is 24 hours start aspirin 81 mg and plavix 75 mg 5. optimize HTN HLD, DM LDL <70 6. PT/OT speech discharge needs 7. plavix 75 mg and aspirin 81 mg daily x 21 days then aspirin 81 mg alone unless cardiology recommends anticoag with embolic shower 8. ZIO as outpatient if no underlying arrhythmia is seen prior to discharge appears to be cardiac origin follow up with Neurology 4-6 weeks, Keila Young PAC schedule Present on Admission?: Yes (2) Left leg weakness: Present on Admission?: Yes (3) Hyperlipidemia: Present on Admission?: Yes (4) Diabetes mellitus, type 2: Present on Admission?: Yes (5) Hypertension: Present on Admission?: Yes Supervising Physician Co-Signing Physician Notes I have seen and discussed above patient with Dr Serafin Mckeon, neurology I seen and examined Mrs. Rojas today and find very little on examination other than perhaps some slight left arm clumsiness to indicate the presence of a significant cerebrovascular accident. She does have a soft systolic murmur which is difficult to characterize, and is mildly to moderately over nourished, has no audible carotid bruits, and on exam simply has a slight clumsiness of the left hand, no visual field cuts no cranial nerve involvement and minimal if any clumsiness of the left leg History suggests that she did have a more significant left alia-syndrome but was able to ambulate and then presented to the emergency room, was assessed, received TPA and probably has improved significantly MRI does show multiple areas of what has been called watershed infarctions but I suspect these are embolic and at present the echocardiographic study is technically suboptimal and she probably needs a transesophageal echo to define the anatomy of her anterior atrial septum and the thoracic aorta which could have atheromatous shaggy plaque and be another source of multiple embolic events She is going to be put through the remainder of the standard post TPA protocol and then hopefully will be able to have more diagnostic studies and in the interval I think we should put her on both aspirin and Plavix await the results of the diagnostic examination and go from there Is conceivable she may need a novel anticoagulant, Coumadin or even a combination of Coumadin and antiplatelet agent We will be checking back tomorrow Serafin Mckeon MD History of Present Illness Reason for Consultation: CVA Requesting Physician: Anusha Justin MD Attending Physician: Anusha Justin MD History of Present Illness Radha is a 69 year old female with PMH-DM 2, HTN, hypothyroidism, morbid obesity with BMI 50, HLD, gout, GERD who presented to [facility] ED with strokelike symptoms. She had left hand numbness and left leg weakness that started at 11:20 PM. A Stroke alert was called and she had a CT head and CTA head and neck which were negative. She was evaluated via [facility] telemetry stroke neurologist [place] [address]/30. She did develop a headache and was taken for a stat CT head which was negative. She still has a mild headache. She will be in ICU following first 24-hour TPA protocol. She states she had stopped her aspirin 81 mg for a tooth abscess which needed surgical attention. She was off the aspirin 5 days prior to the surgery. denies CP, SOB, abdominal pain, slurred speech, swallowing issues, N, V, +headache, +left arm heaviness, +vision changes-off and on double vision Allergies Allergy/AdvReac Type Severity Reaction Status Date / Time Penicillins Allergy Mild tongue Verified 12/01/19 00:51 swelling sulfamethoxazole Allergy Mild RASH Verified 12/01/19 00:51 trimethoprim Allergy Mild RASH Verified 12/01/19 00:51 Bactrim Allergy Unknown RASH Verified 02/28/16 13:39 Tetracyclines Allergy Unknown Unknown Verified 12/01/19 00:51 doxycycline AdvReac Mild Rash Verified 12/01/19 00:51 Home Medications Home Medications Medication Instructions Recorded Confirmed Type Probiotic Blend 1 cap PO Q OTHER DAY 09/30/19 12/01/19 History amlodipine 10 mg PO QDL 09/30/19 12/01/19 History aspirin [Aspirin Low Dose] 81 mg PO QPM 09/30/19 12/01/19 History atorvastatin 80 mg PO HS 09/30/19 12/01/19 History cholecalciferol (vitamin D3) 5,000 unit PO QDD 09/30/19 12/01/19 History [Vitamin D3] fexofenadine [Charlee Allergy] 180 mg PO QPM 09/30/19 12/01/19 History furosemide 20 mg PO Q OTHER DAY 09/30/19 12/01/19 History levothyroxine 125 mcg PO QAM 09/30/19 12/01/19 History lisinopril 40 mg PO QDL 09/30/19 12/01/19 History nystatin 1 applic TOPICAL DAILY PRN 09/30/19 12/01/19 History pantoprazole 40 mg PO HS 09/30/19 12/01/19 History Patient History Medical History Anemia Diabetes mellitus, type 2 ? was on metformin for years, taken off 3+yrs ago GERD (gastroesophageal reflux disease) Gout Hyperlipidemia Hypertension Hypothyroidism Morbid obesity with BMI of 50.0-59.9, adult Osteoarthritis Surgical History History of appendectomy History of bilateral tubal ligation History of cholecystectomy History of colonoscopy History of detached retina repair not sure which eye History of shoulder surgery right--bone spur removed History of tooth extraction History of total hysterectomy with bilateral salpingo-oophorectomy (BSO) Family History Grandfather (Maternal) Family history of diabetes mellitus Grandmother (Maternal) Family history of diabetes mellitus Aunt Family hx of colon cancer Other No family history of adverse response to anesthesia Social History Preferred Language: Telugu Communication Ability: Effective Network Admin Required: No Beliefs That Will Affect Care: None Current Living Situation: Family Current Living Situation Comment: lives with son and grandsons Other Information That Helps Us Care for You: No Feels Safe at Home: Yes Safety Concerns: Feels Safe At This Time Smoking Status: Unknown if ever smoked Hx Alcohol Use: No Hx Substance Use: No Physical Exam Physical Exam: Physical Exam: Constitutional: appearance nourished, healthy obese Ears, Nose, Mouth and Throat: mucous membranes moist, no injection and skin normal, eyes normal Cardiovascular: normal S-1 and S-2 , systolic murmur Respiratory: course breath sounds Musculoskeletal: 2+pitting peripheral edema and distant distal pulses Skin: no stigmata of neurocutaneous disease noted and normal and intact Eyes: extraocular muscles intact (EOMI) and pupils equal, round and reactive to light (PERRL) NEUROLOGIC EXAMINATION: Mental status: Alert and interactive Oriented to full date and location Oriented to person Speech fluent with no evidence of aphasia Cranial Nerves smile eye brow raise symmetric Reflexes: Deep tendon reflexes were symmetrical and graded 2/5. down going toes. Sensory: hypersensitive to light touch left UE Coordination: finger to nose no bi pass Gait/Stance: Posture normal. Gait no assesses Motor: slight left sided drift eyes closed. Strength: hand superintendent maintenance biceps triceps 5/5 bilaterally, hip flex plantar flex ext 5/5 Results & Data Vital Signs (Past 12 Hours) Vital Signs Temp Pulse Pulse Resp BP BP Pulse Ox 12/01/19 13:07 78 21 162/83 H 96 12/01/19 12:07 80 18 171/65 H 94 12/01/19 11:35 77 166/69 H 12/01/19 11:07 87 20 184/82 H 95 12/01/19 10:07 82 173/68 H 95 12/01/19 09:35 78 170/75 H 12/01/19 09:24 75 184/80 H 12/01/19 09:07 79 184/80 H 95 12/01/19 08:37 79 181/79 H 97 12/01/19 08:07 36.8 C 78 184/74 H 96 12/01/19 08:00 78 12/01/19 07:37 74 20 170/71 H 95 12/01/19 07:07 78 18 146/58 H 98 12/01/19 06:37 75 16 162/82 H 96 12/01/19 06:07 77 18 164/65 H 96 12/01/19 05:37 77 18 153/83 H 96 12/01/19 05:07 79 18 171/67 H 96 12/01/19 04:37 78 16 166/74 H 97 12/01/19 04:07 36.8 C 77 20 171/84 H 96 12/01/19 04:05 74 14 96 12/01/19 04:00 76 16 96 12/01/19 03:57 76 17 177/83 H 94 12/01/19 03:55 77 17 94 12/01/19 03:50 78 15 96 12/01/19 03:45 80 21 94 03/16/20 03:41 76 17 170/67 H 94 12/01/19 03:40 75 17 96 12/01/19 03:37 77 18 170/67 H 95 12/01/19 03:35 75 17 94 12/01/19 03:30 76 17 97 12/01/19 03:26 78 20 173/74 H 95 12/01/19 03:25 78 18 95 12/01/19 03:21 76 17 164/81 H 97 12/01/19 03:20 77 18 94 12/01/19 03:15 80 20 95 12/01/19 03:09 37.1 C 81 20 181/61 H 95 12/01/19 03:07 79 18 181/61 H 98 12/01/19 02:55 78 20 96 12/01/19 02:47 78 20 191/69 H 95 12/01/19 02:37 86 15 207/90 H 97 12/01/19 02:07 84 20 193/73 H 96 12/01/19 01:55 81 97 12/01/19 01:52 81 20 166/93 H 96 12/01/19 01:50 79 96 12/01/19 01:45 79 166/93 H 97 12/01/19 01:37 79 20 174/88 H 97 Laboratory Results Abnormal lab results 12/01/19 12/01/19 12/01/19 Range/Units 00:38 00:38 00:40 Hgb 11.1 L (12.0-16.0) g/dL Hct 36.5 L (37-47) % MCV 79.9 L (80-100) fL MCH 24.3 L (25-34) pg MCHC 30.4 L (32-36) g/dL RDW Std Deviation 63.1 H (36.4-46.3) fL RDW Coeff of Jyoti 21.8 H (11.5-14.5) % Immature Gran # (Auto) (0.00-0.02) K/uL Neut # (Auto) (1.4-6.5) K/uL Lymph # (Auto) (1.2-3.4) K/uL Creatinine 1.30 H (0.6-1.2) mg/dl Glucose 144 H (70-99) mg/dl POC Glucose 134 H (70-99) mg/dl AST 14 L (15-37) U/L Albumin 3.1 L (3.4-5.0) gm/dl Albumin/Globulin Ratio 0.8 L (0.9-2) 12/01/19 12/01/19 12/01/19 Range/Units 04:17 04:17 05:51 Hgb 10.5 L (12.0-16.0) g/dL Hct 34.5 L (37-47) % MCV 79.5 L (80-100) fL MCH 24.2 L (25-34) pg MCHC 30.4 L (32-36) g/dL RDW Std Deviation 63.1 H (36.4-46.3) fL RDW Coeff of Jyoti 21.7 H (11.5-14.5) % Immature Gran # (Auto) 0.03 H (0.00-0.02) K/uL Neut # (Auto) 8.22 H (1.4-6.5) K/uL Lymph # (Auto) 1.12 L (1.2-3.4) K/uL Creatinine (0.6-1.2) mg/dl Glucose 167 H (70-99) mg/dl POC Glucose 164 H (70-99) mg/dl AST (15-37) U/L Albumin (3.4-5.0) gm/dl Albumin/Globulin Ratio (0.9-2) 12/01/19 Range/Units 11:57 Hgb (12.0-16.0) g/dL Hct (37-47) % MCV (80-100) fL MCH (25-34) pg MCHC (32-36) g/dL RDW Std Deviation (36.4-46.3) fL RDW Coeff of Jyoti (11.5-14.5) % Immature Gran # (Auto) (0.00-0.02) K/uL Neut # (Auto) (1.4-6.5) K/uL Lymph # (Auto) (1.2-3.4) K/uL Creatinine (0.6-1.2) mg/dl Glucose (70-99) mg/dl POC Glucose 101 H (70-99) mg/dl AST (15-37) U/L Albumin (3.4-5.0) gm/dl Albumin/Globulin Ratio (0.9-2) Diagnostic Findings CT head-no acute intracranial abnormality. Atrophy and microvascular ischemic changes. CTA head-no significant stenosis, occlusion, or aneurysm within the [place] of [place]. Moderate image compromise due to patient motion. CTA neck- No significant stenosis, occlusion, or dissection identified within the carotid or vertebral arteries. Mild atherosclerotic change bilaterally CXR- no significant change compared to the prior study. No acute process. MRI brain-Very small scattered cortical infarcts of the superior parietal lobes bilaterally as well as right occipital lobe. This potentially represents a watershed versus embolic type process. Age-related chronic small vessel change with the study otherwise negative. MRA head-no significant stenosis, occlusion, or aneurysm within the [place] of [place]. TTE- EF 60-65% no ASD
[2019-12-01] MEDS ORDERED: Nursing to Pharmacy Communication ONE (18:13)
--- NOTE | 2019-12-01 20:07 | Communication Note ---
Date of Service: December 01, 2019 Pt was seen and examined Lying in bed with no distress Pt said that she feels ok She said that her left arm numbness and weakness improves Denies any chest pain, palpitation, dizziness and SOB Exam General- No acute distress Head- atraumatic Eyes- PERRL, EOMI, ENT- oropharynx clear Neck- supple, no JVD Lungs- clear to auscultation Heart- regular rhythm; +murmur Abdomen- normal bowel sounds, soft, nontender Extremities- no calf tenderness Neuro- alert, oriented x 3; PERRL, EOMI; no facial palsy; no dysarthria Skin- warm & dry A/P Acute CVA CT head showed no acute intracranial abnormality. Atrophy and microvascular ischemic changes. MRI head showed Very small scattered cortical infarcts of the superior parietal lobes bilaterally as well as right occipital lobe. Stroke alert called and s/p TPA Neuro on board recommended to repeat CT head [address] post TPA If CT head negative, will start on plavix and aspirin as per neuro ECHO showed no wall motion abnormality with EF 60-65 % Continue statin Will monitor closely for bleeding Continue monitor in the ICU PT/OT eval Continue speech therapy Continue neuro check DVT px no anticoagulant due to recent TPA Code status Full code
[2019-12-01] MEDS: PANTOprazole 40 MG TAB PO SCH (20:46)
[2019-12-01] MEDS: ATORVASTATIN 40 MG TAB PO SCH (20:46)
--- NOTE | 2019-12-02 05:49 | Electrocardiogram Report ---
Test Reason : Blood Pressure : / mmHG Vent. Rate : 105 BPM Atrial Rate : 105 BPM P-R Int : 150 ms QRS Dur : 126 ms QT Int : 468 ms P-R-T Axes : 048 077 056 degrees QTc Int : 618 ms Poor data quality, interpretation may be adversely affected Sinus tachycardia Right bundle branch block T wave abnormality, consider inferolateral ischemia Abnormal ECG When compared with ECG of 16-MAY-2004 07:34, Vent. rate has increased BY 37 BPM Right bundle branch block is now Present Confirmed by Braeden Hopper ([id number]) on 12/02/2019 5:49:33 AM Referred By: REFERRED SELF Confirmed By:Braeden Hopper
[2019-12-02 05:54] LABS: Basophils # (auto) 0.03 K/uL (0-0.2); Basophils % (auto) 0.4 %; Eosinophils # (auto) 0.29 K/uL (0-0.5); Eosinophils % (auto) 3.5 %; Hematocrit (blood only) 34.8 % (37-47); Hemoglobin 10.3 g/dL (12.0-16.0); Immature Granulocytes # (auto) 0.01 K/uL (0.00-0.02); Immature Granulocytes % (auto) 0.1 %; Lymphocytes # (auto) 2.04 K/uL (1.2-3.4); Lymphocytes % (auto) 24.9 %; Mean Corpuscular Hemoglobin 24.1 pg (25-34); Mean Corpuscular Hgb Conc 29.6 g/dL (32-36); Mean Corpuscular Volume 81.3 fL (80-100); Mean Platelet Volume 9.5 fL (7.4-10.4); Monocytes # (auto) 0.53 K/uL (0.11-0.59); Monocytes % (auto) 6.5 %; Neutrophils % (auto) 64.6 %; Platelet Count 239 K/uL (130-400); RDW Coefficient of Variation 22.1 % (11.5-14.5); RDW Standard Deviation 65.1 fL (36.4-46.3); Red Blood Count 4.28 M/uL (4.2-5.4)
--- NOTE | 2019-12-02 06:21 | Billing Data ---
Date of Service December 01, 2019 Coding
--- NOTE | 2019-12-02 06:31 | Critical Care Progress Note ---
Date of Service December 02, 2019 Assessment & Plan (1) Acute cerebrovascular accident: Radha Rojas is a 69y/o F presented with left-sided weakness, stroke alert initiated and patient received TPA, admitted to ICU for 24-hour post TPA administration protocol Neuro: - CAM ICU: Negative - Acute CVApatient with left-sided weakness and numbness, initial NIHSS of 2, improved following TPA administration at 0107 on 11/30 - CT head and CTA head and neck negative - Patient experienced headache following TPA administration, repeat CT head negative for acute process - repeat CT at 24 hours demonstrated no acute intracranial abnormalities - ASA, Plavix per neurology - continue statin - Speech, OT, PT consulted - Neurology consulted, follow-up recs - patient medically stable clear to be transferred to med/tele Cardiac: - Currently sinus rhythm and hemodynamically stable - continue to monitor on telemetry - permissive HTN in post-stroke patient - IV metoprolol 5mg Q4h PRN for systolic BP>180 Respiratory: - No history respiratory disease, maintaining sats on nasal cannula - continue to monitor on pulse ox GI: - heart healthy, carb consistent diet Renal/Lytes: - AKIcreatinine 1.3, no prior baseline - Continue to monitor with routine BMPs and trend - Continue IV fluid resuscitation - Replete electrolytes and monitor with routine BMPs : - Strict I's and O's ENDO: - Diabetes type 2hemoglobin A1c pending - Continue sliding scale and Lantus, ICU hypoglycemic protocol - Continue home dose Synthroid HEME: - H&H stable, monitor for bleeding following TPA administration ID: - No indication for infectious process at this time Lines/AV access: - Peripheral IVs DVT PROPHYLAXIS: - SQ Heparin (2) Hypertension: (3) Hypothyroidism: (4) Hyperlipidemia: (5) Gout: (6) GERD (gastroesophageal reflux disease): Admission and Anticipated Discharge Date Admission Date: December 01, 2019 Supervising Physician Co-Signing Physician Notes Dr. Amaya was resident physician during care of patient. I separately evaluated patient for rivers portions of the history and the exam. I was present during the critical portion of medical decision making, and I discussed the case with the resident. I generally agree with the findings and plan. Stable for downgrade out of ICU, stroke order day 2 TPA entered. Subjective No acute events overnight, feels like she has had continued improvement in her strength overnight, no continued feelings of weakness, or numbness. Review of Systems Review of Systems: All systems reviewed & are unremarkable except as noted in Subjective Physical Exam Constitutional: WD/WN, vitals as above Eyes: PERRL, conjunctivae normal, anicteric sclerae ENMT: external ear and nose normal, oropharynx normal Neck: normal visual inspection Respiratory: normal respiratory effort, lungs clear to auscultation Cardiovascular: Rate/Rhythm: regular rate and regular rhythm Heart Sounds: normal S1 and normal S2; no gallop, no murmur and no cardiac rub Vessels: no JVD Extremities: no edema Gastrointestinal (Abdomen): normal bowel sounds, soft, nontender, no hepatosplenomegaly Musculoskeletal: no cyanosis or clubbing, extremities motor strength 5/5 Skin: no rashes, warm and dry Neurologic: moves all extremities; no focal motor deficits Cranial Nerves: EOM intact bilaterally, normal facial strength, able to rotate head bilaterally, able to elevate shoulders bilaterally, no nystagmus and symmetric palate elevation Psychiatric: Orientation: alert and oriented x 3 Lymphatic: no cervical or axillary lymphadenopathy Results & Data ([facility]) Vital Signs (Past 12 Hours) Vital Signs Temp Pulse Pulse Resp BP BP Pulse Ox 12/02/19 06:05 69 15 160/69 H 95 12/02/19 05:06 63 15 148/64 H 96 12/02/19 04:06 36.7 C 66 14 174/67 H 96 12/02/19 03:06 68 14 160/71 H 95 12/02/19 02:18 68 14 182/61 H 93 12/02/19 01:07 78 16 167/62 H 95 12/02/19 00:07 80 16 173/75 H 96 12/01/19 23:07 69 16 149/72 H 93 12/01/19 22:07 65 18 181/71 H 93 12/01/19 21:05 76 18 168/65 H 97 12/01/19 21:00 78 20 96 12/01/19 20:07 85 22 98 12/01/19 20:06 36.7 C 80 25 H 170/76 H 98 12/01/19 19:05 81 17 167/71 H 97 Laboratory Results 12/02/19 12/02/19 12/02/19 Range/Units 07:17 05:24 05:24 WBC 8.20 (4.8-10.8) K/uL RBC 4.28 (4.2-5.4) M/uL Hgb 10.3 L (12.0-16.0) g/dL Hct 34.8 L (37-47) % MCV 81.3 (80-100) fL MCH 24.1 L (25-34) pg MCHC 29.6 L (32-36) g/dL RDW Std Deviation 65.1 H (36.4-46.3) fL RDW Coeff of Jyoti 22.1 H (11.5-14.5) % Plt Count 239 (130-400) K/uL MPV 9.5 (7.4-10.4) fL Immature Gran % (Auto) 0.1 % Neut % (Auto) 64.6 % Lymph % (Auto) 24.9 % [place] % (Auto) 6.5 % Eos % (Auto) 3.5 % Baso % (Auto) 0.4 % Immature Gran # (Auto) 0.01 (0.00-0.02) K/uL Neut # (Auto) 5.30 (1.4-6.5) K/uL Lymph # (Auto) 2.04 (1.2-3.4) K/uL [place] # (Auto) 0.53 (0.11-0.59) K/uL Eos # (Auto) 0.29 (0-0.5) K/uL Baso # (Auto) 0.03 (0-0.2) K/uL Anisocytosis Present Sodium 143 (136-145) mmol/L Potassium 3.9 (3.5-5.1) mmol/L Chloride 110 H (98-107) mmol/L Carbon Dioxide 28 (21-32) mmol/L Anion Gap 5.0 (3-11) BUN 18 (7-18) mg/dl Creatinine 0.99 (0.6-1.2) mg/dl Est Cr Clr Drug Dosing 72.3 ml/min Est GFR ( Amer) 66.9 Est GFR (Non-Af Amer) 57.7 BUN/Creatinine Ratio 18.6 (10-20) Glucose 126 H (70-99) mg/dl POC Glucose 115 H (70-99) mg/dl Calcium 8.8 (8.5-10.1) mg/dl Phosphorus 4.1 (2.5-4.9) mg/dl Magnesium 2.2 (1.8-2.4) mg/dl Nasal Screen MRSA (PCR) (Negative) 12/01/19 12/01/19 12/01/19 Range/Units 20:40 16:33 11:57 WBC (4.8-10.8) K/uL RBC (4.2-5.4) M/uL Hgb (12.0-16.0) g/dL Hct (37-47) % MCV (80-100) fL MCH (25-34) pg MCHC (32-36) g/dL RDW Std Deviation (36.4-46.3) fL RDW Coeff of Jyoti (11.5-14.5) % Plt Count (130-400) K/uL MPV (7.4-10.4) fL Immature Gran % (Auto) % Neut % (Auto) % Lymph % (Auto) % [place] % (Auto) % Eos % (Auto) % Baso % (Auto) % Immature Gran # (Auto) (0.00-0.02) K/uL Neut # (Auto) (1.4-6.5) K/uL Lymph # (Auto) (1.2-3.4) K/uL [place] # (Auto) (0.11-0.59) K/uL Eos # (Auto) (0-0.5) K/uL Baso # (Auto) (0-0.2) K/uL Anisocytosis Sodium (136-145) mmol/L Potassium (3.5-5.1) mmol/L Chloride (98-107) mmol/L Carbon Dioxide (21-32) mmol/L Anion Gap (3-11) BUN (7-18) mg/dl Creatinine (0.6-1.2) mg/dl Est Cr Clr Drug Dosing ml/min Est GFR ( Amer) Est GFR (Non-Af Amer) BUN/Creatinine Ratio (10-20) Glucose (70-99) mg/dl POC Glucose 122 H 103 H 101 H (70-99) mg/dl Calcium (8.5-10.1) mg/dl Phosphorus (2.5-4.9) mg/dl Magnesium (1.8-2.4) mg/dl Nasal Screen MRSA (PCR) (Negative) 12/01/19 Range/Units 07:32 WBC (4.8-10.8) K/uL RBC (4.2-5.4) M/uL Hgb (12.0-16.0) g/dL Hct (37-47) % MCV (80-100) fL MCH (25-34) pg MCHC (32-36) g/dL RDW Std Deviation (36.4-46.3) fL RDW Coeff of Jyoti (11.5-14.5) % Plt Count (130-400) K/uL MPV (7.4-10.4) fL Immature Gran % (Auto) % Neut % (Auto) % Lymph % (Auto) % [place] % (Auto) % Eos % (Auto) % Baso % (Auto) % Immature Gran # (Auto) (0.00-0.02) K/uL Neut # (Auto) (1.4-6.5) K/uL Lymph # (Auto) (1.2-3.4) K/uL [place] # (Auto) (0.11-0.59) K/uL Eos # (Auto) (0-0.5) K/uL Baso # (Auto) (0-0.2) K/uL Anisocytosis Sodium (136-145) mmol/L Potassium (3.5-5.1) mmol/L Chloride (98-107) mmol/L Carbon Dioxide (21-32) mmol/L Anion Gap (3-11) BUN (7-18) mg/dl Creatinine (0.6-1.2) mg/dl Est Cr Clr Drug Dosing ml/min Est GFR ( Amer) Est GFR (Non-Af Amer) BUN/Creatinine Ratio (10-20) Glucose (70-99) mg/dl POC Glucose (70-99) mg/dl Calcium (8.5-10.1) mg/dl Phosphorus (2.5-4.9) mg/dl Magnesium (1.8-2.4) mg/dl Nasal Screen MRSA (PCR) Negative (Negative) Medications Administered Current Inpatient Medications Acetaminophen (Tylenol) 650 mg PO Q6H PRN PRN Reason: Fever Stop: 12/31/19 03:22 Aspirin (Ecotrin Ectab) 81 mg PO QAM JAY Stop: 01/01/20 08:59 Last Admin: 12/02/19 07:49 Dose: 81 mg Documented by: Atorvastatin Calcium (Lipitor) 80 mg PO HS [facility] Stop: 12/31/19 20:59 Last Admin: 12/01/19 20:46 Dose: 80 mg Documented by: Clopidogrel Bisulfate (Plavix) 75 mg PO QAM [facility] Stop: 01/01/20 08:59 Last Admin: 12/02/19 07:49 Dose: 75 mg Documented by: Dextrose (Dextrose 50%) 25 - 50 ml IV UD PRN; Protocol PRN Reason: Hypoglycemia Protocol Stop: 12/31/19 03:22 Glucagon (Glucagen) 1 mg SQ UD PRN; Protocol PRN Reason: Hypoglycemia Protocol Stop: 12/31/19 03:22 Glucose (Dex4 Glucose) 4 - 8 tabs PO UD PRN; Protocol PRN Reason: Hypoglycemia Protocol Stop: 12/31/19 03:22 Glucose (Glucose 40%) 15 - 30 gm PO UD PRN; Protocol PRN Reason: Hypoglycemia Protocol Stop: 12/31/19 03:22 Heparin Sodium (Porcine) (Heparin Sodium (Porcine)) 5,000 units SQ Q12 JAY Stop: 01/01/20 08:59 Last Admin: 12/02/19 07:49 Dose: 5,000 units Documented by: Hydromorphone HCl (Dilaudid) 0.5 mg IV Q3H PRN PRN Reason: Pain Stop: 12/15/19 03:22 Promethazine HCl 12.5 mg/ (Sodium Chloride) 50.5 mls @ 202 mls/hr IV Q6H PRN PRN Reason: Nausea And Vomiting Stop: 12/31/19 03:22 Lorazepam (Ativan) 0.25 mg in 0.5 mls @ 0.5 mls/min IV Q1H PRN PRN Reason: Anxiety/Agitation Stop: 12/31/19 03:22 Last Admin: 12/01/19 10:22 Dose: 0.5 mls/min Documented by: Insulin Aspart (Novolog Flexpen) 0 units SC ACHS [facility] Stop: 12/31/19 20:59 Last Admin: 12/02/19 07:48 Dose: 2 units Documented by: Labetalol HCl (Normodyne) 5 mg IV Q4H PRN PRN Reason: Hypertension Stop: 12/31/19 22:11 Last Admin: 12/01/19 22:30 Dose: 5 mg Documented by: Levothyroxine Sodium (Synthroid) 125 mcg PO DAILYBB JAY Stop: 12/31/19 06:29 Last Admin: 12/02/19 06:45 Dose: 125 mcg Documented by: Metoprolol Tartrate (Lopressor) 5 mg IV Q6 PRN PRN Reason: Systolic >180 Stop: 12/31/19 11:59 Last Admin: 12/01/19 17:16 Dose: 5 mg Documented by: Miscellaneous (Icu Protocol For Hyperglycemia) 1 ea N/A PRN PRN; Protocol PRN Reason: Hyperglycemia Protocol Stop: 12/03/19 03:22 Miscellaneous (Carbohydrates For Hypoglycemia) 15 - 30 gm PO UD PRN PRN Reason: Hypoglycemia Protocol Stop: 12/31/19 03:22 Miscellaneous Information (Pharmacist Discharge Med Rec Consult) 1 ea N/A UD PRN PRN Reason: Consult Stop: 12/31/19 03:29 Pantoprazole Sodium (Protonix) 40 mg PO HS JAY Stop: 12/31/19 20:59 Last Admin: 12/01/19 20:46 Dose: 40 mg Documented by: Tramadol HCl (Ultram) 25 - 50 mg PO Q4H PRN PRN Reason: Pain Stop: 12/31/19 03:22 Resident Activity Tracking Resident Involvement: Resident Care Provided Care Provided: Adult Hospital Medicine
[2019-12-02 06:32] LABS: BUN Creatinine Ratio 18.6 (10-20); Calcium 8.8 mg/dl (8.5-10.1); Creatinine Clr Calc Pharmacy 72.3 ml/min; Est GFR (African American) 66.9; Est GFR (Non-African American) 57.7; Magnesium 2.2 mg/dl (1.8-2.4); Potassium 3.9 mmol/L (3.5-5.1)
[2019-12-02 06:33] LABS: Phosphorus 4.1 mg/dl (2.5-4.9)
--- NOTE | 2019-12-02 06:43 | CT Scan Report ---
CT head/brain wo con CT DOSE: 614.27 mGy.cm HISTORY: Mental status change 24h ffup study post tpa TECHNIQUE: Multiaxial CT images of the head were performed without the use of intravenous contrast. A dose lowering technique was utilized adhering to the principles of ALARA. Comparison: 12/01/2019 Findings: The paranasal sinuses and mastoid air cells are clear. The calvarium and skull base are int act. The ventricles and sulci are within normal limits. There is no mass, hematoma, midline shift, or acute infarct. Impression: No acute intracranial abnormality. ACT 112: Negative or not required by law. The above report was generated using voice recognition software. It may contain grammatical, syntax or spelling errors. Electronically signed by: Hudson Up M.D. 12/02/2019 6:42 AM
[2019-12-02] MEDS: LEVOTHYROXINE SODIUM 125 MCG TABLET PO SCH (06:45)
[2019-12-02 07:01] LABS: Anisocytosis Present
[2019-12-02] MEDS: INSULIN ASPART 100 UNITS/ML 3 ML PEN SC SCH ×4 (07:48→20:38)
[2019-12-02] MEDS: HEPARIN SOD 5,000 UNIT/0.5 ML VIAL SQ SCH ×2 (07:49→20:37)
[2019-12-02] MEDS: ASPIRIN 81 MG ECTAB PO SCH (07:49)
[2019-12-02] MEDS: CLOPIDOGREL BISULFATE 75 MG TAB PO SCH (07:49)
--- NOTE | 2019-12-02 13:58 | Neurology Progress Note ---
Date of Service December 02, 2019 Assessment & Plan (1) Acute cerebrovascular accident: 1. MRI- small scattered cortical infarcts superior parietal lobes and right occipital lobe and left parietal 2. CTA no sigificant stenosis or occlusion 3. TTE- no ASD 4. once protocol for tPa is 24 hours start aspirin 81 mg and plavix 75 mg 5. optimize HTN HLD, DM LDL <70 6. PT/OT speech discharge needs 7. plavix 75 mg and aspirin 81 mg daily x 21 days then aspirin 81 mg alone unless cardiology recommends anticoag with embolic shower 8. ZIO as outpatient if no underlying arrhythmia is seen prior to discharge appears to be cardiac origin 9. cardiology for possible FABY for cardiac emboli follow up with Neurology 4-6 weeks, Keila Young PAC schedule (2) Left leg weakness: (3) Hyperlipidemia: (4) Diabetes mellitus, type 2: (5) Hypertension: Admission and Anticipated Discharge Date Admission Date: December 01, 2019 Supervising Physician Co-Signing Physician Notes I have seen and discussed above patient with Dr Serafin Mckeon, neurology I have seen Mrs. Rojas today and pleased to report that she from my point of view is essentially normal neurologically perhaps with a minor degree of clumsiness of the left arm and leg but otherwise without any obvious defects on examination She does have evidence for multiple presumptive embolic events involving both hemispheres with the most symptomatic one at least in terms of her presentation being in the right hemisphere but this is largely cleared Dr. Esqueda of cardiology is going to be looking at her I think is already planned a transesophageal echo to get a more clear shot of her aortic arch and her aortic valve where he feels a systolic murmur is generated and did demonstrate some changes on the transthoracic echo despite its poor quality For now neurology is recommending simply dual antiplatelet therapy but I am suspicious that she may end up on either a novel anticoagulant or a combination of Coumadin and perhaps aspirin depending on what is found on subsequent cardiac studies We are going to sign off the case at this point since we are not adding anything of value but will be happy to reassess her as part of the standard post stroke algorithm within 3 to 4 weeks time in our office at [facility] Serafin Mckeon MD Raudel Garcia is a 69 year old female with PMH-DM 2, HTN, hypothyroidism, morbid obesity with BMI 50, HLD, gout, GERD who presented to [facility] ED with strokelike symptoms. She had left hand numbness and left leg weakness that started at 11:20 PM. A Stroke alert was called and she had a CT head and CTA head and neck which were negative. She was evaluated via [facility] telemetry stroke neurologist who recommended tPa which was administered at 0107 11/30. She did develop a headache and was taken for a stat CT head which was negative. She still has a mild headache. She will be in ICU following first 24-hour TPA protocol. She states she had stopped her aspirin 81 mg for a tooth abscess which needed surgical attention. She was off the aspirin 5 days prior to the surgery. She is doing better today sitting up in bedside chair. She thinks her arm has improved but her leg is still weak. 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 biceps triceps right 5/5, left 5/5 hip flex right 5/5 left 4+/5 facial symmetry speech no aphasia Results & Data ([facility]) Vital Signs (Past 12 Hours) Vital Signs Temp Pulse Resp BP Pulse Ox 12/02/19 12:14 36.6 C 72 19 163/74 H 98 12/02/19 10:06 70 20 148/70 H 98 12/02/19 09:06 73 18 120/101 H 99 12/02/19 08:16 36.6 C 74 21 164/67 H 97 12/02/19 08:00 75 12/02/19 07:06 75 2 L 169/87 H 95 12/02/19 06:48 75 19 160/69 H 95 12/02/19 06:05 69 15 160/69 H 95 12/02/19 05:06 63 15 148/64 H 96 12/02/19 04:06 36.7 C 66 14 174/67 H 96 12/02/19 03:06 68 14 160/71 H 95 12/02/19 02:18 68 14 182/61 H 93 Laboratory Results Abnormal lab results 12/01/19 12/01/19 12/02/19 Range/Units 16:33 20:40 05:24 Hgb 10.3 L (12.0-16.0) g/dL Hct 34.8 L (37-47) % MCH 24.1 L (25-34) pg MCHC 29.6 L (32-36) g/dL RDW Std Deviation 65.1 H (36.4-46.3) fL RDW Coeff of Jyoti 22.1 H (11.5-14.5) % Chloride (98-107) mmol/L Glucose (70-99) mg/dl POC Glucose 103 H 122 H (70-99) mg/dl 12/02/19 12/02/19 Range/Units 05:24 07:17 Hgb (12.0-16.0) g/dL Hct (37-47) % MCH (25-34) pg MCHC (32-36) g/dL RDW Std Deviation (36.4-46.3) fL RDW Coeff of Jyoti (11.5-14.5) % Chloride 110 H (98-107) mmol/L Glucose 126 H (70-99) mg/dl POC Glucose 115 H (70-99) mg/dl Diagnostic Findings CT head- repeat 12/02/2019-No acute intracranial abnormality.
--- NOTE | 2019-12-02 15:56 | Hospitalist Progress Note ---
Date of Service December 02, 2019 Assessment & Plan (1) Acute cerebrovascular accident: CT head showed no acute intracranial abnormality. Atrophy and microvascular ischemic changes. MRI head showed Very small scattered cortical infarcts of the superior parietal lobes bilaterally as well as right occipital lobe. Stroke alert called and s/p TPA Neuro on board recommended to repeat CT head 24 hr post TPA protocol Repeat CT head negative for any intracranial abnormality Neuro recommended plavix 75 mg and aspirin 81 mg daily x 21 days then aspirin 81 mg alone unless cardiology recommends anticoag with embolic shower ECHO showed no wall motion abnormality with EF 60-65 % Continue statin Cardiology consulted to eval for FABY for possible embolic event that might cause the CVA case discussed with Cardiology that plan for FABY on Sunday Continue statin PT/OT eval Continue speech therapy Continue neuro check HTN BP elevated Will allowed permissive HTN Will resume amlodipine and lisinopril Continue monitor BP Hypothyroidism Continue Levothyroxine 125mcg daily Diabetes ' Hba1c 5.6 Not on any med BS well controlled DVT px no anticoagulant due to recent TPA Code status Full code Disposition Will transfer out of the ICU Plan for FABY on Admission and Anticipated Discharge Date Admission Date: December 01, 2019 Subjective Pt was seen and examined Sitting in chair with no distress Pt said that she feels much better She said that strength in her left arm improves Denies any chest pain, palpitation, dizziness and SOB Results & Data ([facility]) Vital Signs (Past 12 Hours) Vital Signs Temp Pulse Resp BP Pulse Ox 12/02/19 12:14 36.6 C 72 19 163/74 H 98 12/02/19 10:06 70 20 148/70 H 98 12/02/19 09:06 73 18 120/101 H 99 12/02/19 08:16 36.6 C 74 21 164/67 H 97 12/02/19 08:00 75 12/02/19 07:06 75 2 L 169/87 H 95 12/02/19 06:48 75 19 160/69 H 95 12/02/19 06:05 69 15 160/69 H 95 12/02/19 05:06 63 15 148/64 H 96 12/02/19 04:06 36.7 C 66 14 174/67 H 96
--- NOTE | 2019-12-02 16:03 | Cardiology Consultation ---
Date of Consultation December 02, 2019 Assessment & Plan (1) Acute cerebrovascular accident: Acute stroke: Patient certainly does have vascular risk factors of longstanding hypertension and dyslipidemia. MRI suggests embolic source. No atrial fibrillation detected on telemetry thus far, but will need a long-term outpatient laboratory monitor to exclude. I was asked to assess patient to see if a transesophageal echocardiogram would be helpful. She has had a suboptimal transthoracic echo due to poor acoustical windows. She is hemodynamically stable, she is cognitively intact and is maintaining her airway well. She received TPA at 1:03 AM on 12/01/2019. She is now on dual antiplatelet therapy with aspirin and clopidogrel having been on monotherapy with aspirin prior to this event. She had a colonoscopy performed in September 2019 and tolerated well from a proce dure standpoint. I think would be reasonable to proceed with a transesophageal echocardiogram for further evaluation of cardiac source of embolism, I would like to have her recover a little bit more from a stroke standpoint, and will therefore tentatively plan for the procedure on 12/04/2019. The procedure was explained to the patient, and she was agreeable with proceeding. An anesthesia consult will be placed. Dyslipidemia: LDL cholesterol was 72 mg/dL this admission, continue atorvastatin 80 mg. Right bundle branch block: Update EKG tomorrow regarding follow-up of nonspecific repolarization changes noted on presentation. Murmur: Hemodynamic data suggest borderline to mild aortic valve stenosis, the LV outflow tract and aortic valve are not well-visualized. This be further assessed on transesophageal echo. History of Present Illness Attending Physician: Anusha Justin MD History of Present Illness Radha Rojas is a 69 year old female seen in cardiology consultation per the re quest of Dr Justin for advice regarding suspected cardiac source of cerebral embolism. The patient has not followed with cardiology previously. She has a history of obesity and weighs 311 pounds, body mass index 57 kg/m, hypertension, type 2 diabetes mellitus controlled with diet, and dyslipidemia. Her most recent outpatient LDL cholesterol level admitted in August 2019 at which time her LDL cholesterol was 80 mg/dL on atorvastatin 80 mg. Patient describes abrupt onset of symptoms at 11:15 PM on 11/30/2019 she was getting ready for bed and she noted first left arm and leg numbness followed by left arm and leg weakness. She presented to the emergency room and was assessed by the local emergency department team as well as the tele-stroke program and TPA was administered at that time with subsequent improvement in her symptoms. She still notes some mild residual left upper and lower extremity weakness. She is sitting in the bedside chair in ICU room 108. She is able to provide adequate history, and she is in no distress. She received 2 CT scans of the brain on 12/01/2019 without acute intracranial abnormality. MRI of the brain performed 12/01/2019 revealed very small scattered cortical infarcts in the superior parietal lobes bilaterally as well as the right occipital lobe. The distribution and appearance of the infarcts suggested watershed versus embolic process. Age-related chronic small vessel change also noted. Telemetry reveals sinus rhythm throughout her stay thus far. Allergies Allergy/AdvReac Type Severity Reaction Status Date / Time Penicillins Allergy Mild tongue Verified 12/01/19 00:51 swelling sulfamethoxazole Allergy Mild RASH Verified 12/01/19 00:51 trimethoprim Allergy Mild RASH Verified 12/01/19 00:51 Bactrim Allergy Unknown RASH Verified 02/28/16 13:39 Tetracyclines Allergy Unknown Unknown Verified 12/01/19 00:51 doxycycline AdvReac Mild Rash Verified 12/01/19 00:51 Home Medications Home Medications Medication Instructions Recorded Confirmed Type Probiotic Blend 1 cap PO Q OTHER DAY 09/30/19 12/01/19 History amlodipine 10 mg PO QDL 09/30/19 12/01/19 History aspirin [Aspirin Low Dose] 81 mg PO QPM 09/30/19 12/01/19 History atorvastatin 80 mg PO HS 09/30/19 12/01/19 History cholecalciferol (vitamin D3) 5,000 unit PO QDD 09/30/19 12/01/19 History [Vitamin D3] fexofenadine [Charlee Allergy] 180 mg PO QPM 09/30/19 12/01/19 History furosemide 20 mg PO Q OTHER DAY 09/30/19 12/01/19 History levothyroxine 125 mcg PO QAM 09/30/19 12/01/19 History lisinopril 40 mg PO QDL 09/30/19 12/01/19 History nystatin 1 applic TOPICAL DAILY PRN 09/30/19 12/01/19 History pantoprazole 40 mg PO HS 09/30/19 12/01/19 History Patient History Medical History Anemia Diabetes mellitus, type 2 ? was on metformin for years, taken off 3+yrs ago GERD (gastroesophageal reflux disease) Gout Hyperlipidemia Hypertension (Acute) Hypothyroidism Morbid obesity with BMI of 50.0-59.9, adult Osteoarthritis Surgical History History of appendectomy History of bilateral tubal ligation History of cholecystectomy History of colonoscopy History of detached retina repair not sure which eye History of shoulder surgery right--bone spur removed History of tooth extraction History of total hysterectomy with bilateral salpingo-oophorectomy (BSO) Family History Grandfather (Maternal) Family history of diabetes mellitus Grandmother (Maternal) Family history of diabetes mellitus Aunt Family hx of colon cancer Other No family history of adverse response to anesthesia Social History Preferred Language: Arabic Communication Ability: Effective Group Rooms Coordinator Required: No Beliefs That Will Affect Care: None Current Living Situation: Family Current Living Situation Comment: lives with son and grandsons Other Information That Helps Us Care for You: No Feels Safe at Home: Yes Safety Concerns: Feels Safe At This Time Smoking Status: Unknown if ever smoked Hx Alcohol Use: No Hx Substance Use: No Review of Systems Review of Systems: All systems reviewed & are unremarkable except as noted in HPI & below Physical Exam Physical Exam: Temp Pulse Resp BP Pulse Ox 36.6 C 72 19 163/74 H 98 12/02/19 12:14 12/02/19 12:14 12/02/19 12:14 12/02/19 12:14 12/02/19 12:14 Constitutional: WD/WN, vitals as above Respiratory: normal respiratory effort, lungs clear to auscultation Cardiovascular: Rate/Rhythm: regular rhythm Heart Sounds: + murmur (I/ systolic murmur) Vessels: no JVD Extremities: no edema Gastrointestinal (Abdomen): normal bowel sounds, soft, nontender, no hepatosplenomegaly Neurologic: Cognitively intact. No aphasia, mild left upper and lower extremity weakness Results & Data ([facility]) Vital Signs (Past 12 Hours) Vital Signs Temp Pulse Resp BP Pulse Ox 12/02/19 12:14 36.6 C 72 19 163/74 H 98 12/02/19 10:06 70 20 148/70 H 98 12/02/19 09:06 73 18 120/101 H 99 12/02/19 08:16 36.6 C 74 21 164/67 H 97 12/02/19 08:00 75 12/02/19 07:06 75 2 L 169/87 H 95 12/02/19 06:48 75 19 160/69 H 95 12/02/19 06:05 69 15 160/69 H 95 12/02/19 05:06 63 15 148/64 H 96 12/02/19 04:06 36.7 C 66 14 174/67 H 96 Diagnostic Findings CTA studies of the cerebral circulation and neck without significant stenosis, as were MRA studies. EKG on arrival revealed sinus tachycardia 105 bpm with right bundle branch block, nonspecific repolarization changes. Thoracic echocardiogram performed 12/01/2019 revealed technically limited study. Mild concentric left ventricular hypertrophy was present. LVEF normal in the range of 6065%. The left ventricular outflow tract and aortic valve were not well visualized and the number of aortic valve cusps could not be determined. Borderline to mild aortic valve stenosis appears to be present by Doppler assessment. There is no evidence of atrial septal defect but the resolution does not allow for assessment of a PFO. Medications Administered Current Inpatient Medications Acetaminophen (Tylenol) 650 mg PO Q6H PRN PRN Reason: Fever Stop: 12/31/19 03:22 Aspirin (Ecotrin Ectab) [facility] Stop: 01/01/20 08:59 Last Admin: 12/02/19 07:49 Dose: 81 mg Documented by: Atorvastatin Calcium (Lipitor) 80 mg PO [facility] Stop: 12/31/19 20:59 Last Admin: 12/01/19 20:46 Dose: 80 mg Documented by: Clopidogrel Bisulfate (Plavix) 75 mg PO QAM [facility] Stop: 01/01/20 08:59 Last Admin: 12/02/19 07:49 Dose: 75 mg Documented by: Dextrose (Dextrose 50%) 25 - 50 ml IV UD PRN; Protocol PRN Reason: Hypoglycemia Protocol Stop: 12/31/19 03:22 Glucagon (Glucagen) 1 mg SQ UD PRN; Protocol PRN Reason: Hypoglycemia Protocol Stop: 12/31/19 03:22 Glucose (Dex4 Glucose) 4 - 8 tabs PO UD PRN; Protocol PRN Reason: Hypoglycemia Protocol Stop: 12/31/19 03:22 Glucose (Glucose 40%) 15 - 30 gm PO UD PRN; Protocol PRN Reason: Hypoglycemia Protocol Stop: 12/31/19 03:22 Heparin Sodium (Porcine) (Heparin Sodium (Porcine)) 5,000 units SQ Q12 JAY Stop: 01/01/20 08:59 Last Admin: 12/02/19 07:49 Dose: 5,000 units Documented by: Promethazine HCl 12.5 mg/ (Sodium Chloride) 50.5 mls @ 202 mls/hr IV Q6H PRN PRN Reason: Nausea And Vomiting Stop: 12/31/19 03:22 Insulin Aspart (Novolog Flexpen) 0 units SC ACHS JAY Stop: 12/31/19 20:59 Last Admin: 12/02/19 11:59 Dose: 2 units Documented by: Labetalol HCl (Normodyne) 5 mg IV Q4H PRN PRN Reason: Hypertension Stop: 12/31/19 22:11 Last Admin: 12/01/19 22:30 Dose: 5 mg Documented by: Levothyroxine Sodium (Synthroid) 125 mcg PO DAILYBB [facility] Stop: 12/31/19 06:29 Last Admin: 12/02/19 06:45 Dose: 125 mcg Documented by: Metoprolol Tartrate (Lopressor) 5 mg IV Q6 PRN PRN Reason: Systolic >180 Stop: 12/31/19 11:59 Last Admin: 12/01/19 17:16 Dose: 5 mg Documented by: Miscellaneous (Icu Protocol For Hyperglycemia) 1 ea N/A PRN PRN; Protocol PRN Reason: Hyperglycemia Protocol Stop: 12/03/19 03:22 Miscellaneous (Carbohydrates For Hypoglycemia) 15 - 30 gm PO UD PRN PRN Reason: Hypoglycemia Protocol Stop: 12/31/19 03:22 Miscellaneous Information (Pharmacist Discharge Med Rec Consult) 1 ea N/A UD PRN PRN Reason: Consult Stop: 12/31/19 03:29 Pantoprazole Sodium (Protonix) 40 mg PO HS JAY Stop: 12/31/19 20:59 Last Admin: 12/01/19 20:46 Dose: 40 mg Documented by:
[2019-12-02] MEDS ORDERED: AMLODIPINE BESYLATE 5 MG TAB PO STA (16:09)
[2019-12-02] MEDS: ATORVASTATIN 40 MG TAB PO SCH (20:37)
[2019-12-02] MEDS: PANTOprazole 40 MG TAB PO SCH (20:38)
[2019-12-03] MEDS: LEVOTHYROXINE SODIUM 125 MCG TABLET PO SCH (05:57)
[2019-12-03 06:51] LABS: Hematocrit (blood only) 34.7 % (37-47); Hemoglobin 10.5 g/dL (12.0-16.0); Mean Corpuscular Hemoglobin 24.6 pg (25-34); Mean Corpuscular Hgb Conc 30.3 g/dL (32-36); Mean Corpuscular Volume 81.3 fL (80-100); Mean Platelet Volume 9.5 fL (7.4-10.4); Platelet Count 226 K/uL (130-400); RDW Standard Deviation 65.2 fL (36.4-46.3); Red Blood Count 4.27 M/uL (4.2-5.4); White Blood Count 7.77 K/uL (4.8-10.8)
[2019-12-03 07:31] LABS: BUN Creatinine Ratio 19.1 (10-20); Calcium 8.9 mg/dl (8.5-10.1); Creatinine Clr Calc Pharmacy 67.9 ml/min; Est GFR (African American) 62.3; Est GFR (Non-African American) 53.8; Potassium 4.1 mmol/L (3.5-5.1)
[2019-12-03] MEDS: ASPIRIN 81 MG ECTAB PO SCH (07:34)
[2019-12-03] MEDS: CLOPIDOGREL BISULFATE 75 MG TAB PO SCH (07:34)
[2019-12-03] MEDS: INSULIN ASPART 100 UNITS/ML 3 ML PEN SC SCH ×4 (08:44→20:16)
[2019-12-03] MEDS: HEPARIN SOD 5,000 UNIT/0.5 ML VIAL SQ SCH ×3 (08:44→20:16)
--- NOTE | 2019-12-03 09:30 | Hospitalist Progress Note ---
Date of Service December 03, 2019 Assessment & Plan (1) Acute cerebrovascular accident: CT head showed no acute intracranial abnormality. Atrophy and microvascular ischemic changes. MRI head showed Very small scattered cortical infarcts of the superior parietal lobes bilaterally as well as right occipital lobe. Stroke alert called on admission and s/p TPA Neuro on board Repeat CT head post TPA protocol negative for any intracranial abnormality Currently on DAPT. Neuro recommended plavix 75 mg and aspirin 81 mg daily x 21 days then aspirin 81 mg alone unless cardiology recommends anticoag with embolic shower ECHO showed no wall motion abnormality with EF 60-65 % Continue atorvastatin, high intensity Cardiology consulted to eval for FABY for possible embolic event that might cause the CVA Dr Justin discussed with Cardiology that plan for FABY on 12/04/19 Continue neuro check (2) HTN BP elevated Allowing for permissive hypertension Currently on lisinopril Plan to resume home amlodipine by tomorrow Continue monitor BP (3) Hypothyroidism Continue Levothyroxine 125mcg daily (4) Diabetes Hba1c 5.6 Not on any med BS well controlled (5) CKD3 Patient's GFR has always been 30-60 on review of labwork over the past couple of months on [employer] and [employer] Avoid nephrotoxins DVT px- currently on hep sq Code status Full code PT - home with OPPT Admission and Anticipated Discharge Date Admission Date: December 01, 2019 Subjective Patient seen and examined Reports left arm weakness/numbness is completely resolved. States she still has left leg heaviness and weakness though improving. Denied any headaches, slurred speech, blurred vision. Denied any other complaints Physical Exam Constitutional: + well hydrated and + obese; no acute distress Eyes: PERRL, conjunctivae normal, anicteric sclerae ENMT: external ear and nose normal, oropharynx normal Respiratory: normal respiratory effort, lungs clear to auscultation Cardiovascular: RRR, no murmur, no edema Heart Sounds: normal S1 and normal S2 Gastrointestinal (Abdomen): normal bowel sounds, soft, nontender, no hepatosplenomegaly Neurologic: A0x3, power is 5/5 in UE, 4/5 in LLE, 5/5 in RLE, no sensory deficits noted, no dysarthria/aphasia/facial asymmetry Psychiatric: A+Ox3, euthymic affect Results & Data ([facility]) Vital Signs (Past 12 Hours) Vital Signs Temp Pulse Pulse Resp BP Pulse Ox 12/03/19 07:18 36.3 C L 75 20 158/73 H 95 12/03/19 02:45 36.7 C 77 20 137/71 98 12/03/19 00:36 75 12/03/19 00:15 36.7 C 56 L 20 146/68 H 97 Laboratory Results Abnormal lab results 12/02/19 12/03/19 12/03/19 Range/Units 20:11 06:16 06:16 Hgb 10.5 L (12.0-16.0) g/dL Hct 34.7 L (37-47) % MCH 24.6 L (25-34) pg MCHC 30.3 L (32-36) g/dL RDW Std Deviation 65.2 H (36.4-46.3) fL RDW Coeff of Jyoti 22.0 H (11.5-14.5) % Chloride 109 H (98-107) mmol/L BUN 20 H (7-18) mg/dl Glucose 109 H (70-99) mg/dl POC Glucose 106 H (70-99) mg/dl 12/03/19 Range/Units 07:40 Hgb (12.0-16.0) g/dL Hct (37-47) % MCH (25-34) pg MCHC (32-36) g/dL RDW Std Deviation (36.4-46.3) fL RDW Coeff of Jyoti (11.5-14.5) % Chloride (98-107) mmol/L BUN (7-18) mg/dl Glucose (70-99) mg/dl POC Glucose 115 H (70-99) mg/dl
--- NOTE | 2019-12-03 12:24 | Cardiology Progress Note ---
Date of Service December 03, 2019 Assessment & Plan (1) Acute cerebrovascular accident: Patient presented with acute onset left upper and lower extremity numbness and weakness. MRI suggests a embolic source with small infarcts in multiple territories. Her transthoracic echocardiogram images are suboptimal, the interatrial septum is poorly visualized, the aortic valve is not well visualized. She has a murmur suggestive of aortic stenosis and Doppler suggests at least mild aortic valve stenosis. She received TPA on 12/01/2019 at 1:03 AM. She is now tolerating dual antiplatelet therapy with aspirin and clopidogrel, having been on aspirin 81 mg daily prior to this event. Post TPA she did have some oral bleeding, this is now controlled. She denies any difficulty with swallowing at baseline. She underwent a colonoscopy for work-up of iron deficiency anemia in September, and has on going anemia. She tolerated the colonoscopy well from a sedation standpoint. The rationale of a transesophageal echocardiogram was once again discussed with the patient, informed consent was obtained, and the patient elects to proceed. This will tentatively be planned to be performed tomorrow morning 12/04/2019. Per patient's request, I called and updated her daughter, Alicia, phone [phone] regarding the rational and plan for the FABY. Subjective Chief complaint: Follow-up left-sided weakness Subjective: Patient comfortable sitting in the bedside chair. She still is mild left upper and lower extremity weakness, but her coordination is quite good. She is cognitively intact. Has no word trouble finding difficulty, and she is maintaining her airway without any difficulty. Telemetry reveals stable sinus rhythm without arrhythmia. Review of Systems Review of Systems: All systems reviewed & are unremarkable except as noted in HPI & below Physical Exam Physical Exam: CBC 12/03/19 Range/Units 06:16 WBC 7.77 (4.8-10.8) K/uL RBC 4.27 (4.2-5.4) M/uL Hgb 10.5 L (12.0-16.0) g/dL Hct 34.7 L (37-47) % Plt Count 226 (130-400) K/uL Comprehensive Metabolic Panel 12/03/19 Range/Units 06:16 Sodium 140 (136-145) mmol/L Potassium 4.1 (3.5-5.1) mmol/L Chloride 109 H (98-107) mmol/L Carbon Dioxide 26 (21-32) mmol/L BUN 20 H (7-18) mg/dl Creatinine 1.05 (0.6-1.2) mg/dl Glucose 109 H (70-99) mg/dl Calcium 8.9 (8.5-10.1) mg/dl Intake and Output 12/02/19 12/03/19 12/03/19 22:59 06:59 14:59 Intake Total 880 / 1030 150 / 1030 Output Total 100 / 500 400 / 500 Balance 780 / 530 -250 / 530 Intake: Oral 880 / 1030 150 / 1030 Output: Urine Amount (Ca theter) 100 / 500 400 / 500 External 100 / 500 400 / 500 # Bowel Movement s 0 / 0 Other: # Unmeasured Voi ds 2 Weight 140.6 kg Constitutional: WD/WN, vitals as above Respiratory: normal respiratory effort, lungs clear to auscultation Cardiovascular: Rate/Rhythm: regular rate Heart Sounds: + murmur (1/6 SM) Gastrointestinal (Abdomen): normal bowel sounds, soft, nontender, no hepatosplenomegaly Neurologic: PERRL, EOMI, accommodation nl, no face palsy, no dysarthria Results & Data Vital Signs (Past 12 Hours) Vital Signs Temp Pulse Pulse Resp BP Pulse Ox 12/03/19 07:18 36.3 C L 75 20 158/73 H 95 12/03/19 02:45 36.7 C 77 20 137/71 98 12/03/19 00:36 75 Laboratory Results CBC 12/03/19 Range/Units 06:16 WBC 7.77 (4.8-10.8) K/uL RBC 4.27 (4.2-5.4) M/uL Hgb 10.5 L (12.0-16.0) g/dL Hct 34.7 L (37-47) % Plt Count 226 (130-400) K/uL Comprehensive Metabolic Panel 12/03/19 Range/Units 06:16 Sodium 140 (136-145) mmol/L Potassium 4.1 (3.5-5.1) mmol/L Chloride 109 H (98-107) mmol/L Carbon Dioxide 26 (21-32) mmol/L BUN 20 H (7-18) mg/dl Creatinine 1.05 (0.6-1.2) mg/dl Glucose 109 H (70-99) mg/dl Calcium 8.9 (8.5-10.1) mg/dl Intake and Output 12/02/19 12/03/19 12/03/19 22:59 06:59 14:59 Intake Total 880 / 1030 150 / 1030 Output Total 100 / 500 400 / 500 Balance 780 / 530 -250 / 530 Intake: Oral 880 / 1030 150 / 1030 Output: Urine Amount (Catheter) 100 / 500 400 / 500 External 100 / 500 400 / 500 # Bowel Movements 0 / 0 Other: # Unmeasured Voids 2 Weight 140.6 kg
[2019-12-03] MEDS: lisinopriL 40 MG TAB PO SCH (12:29)
--- NOTE | 2019-12-03 13:06 | Billing Data ---
Date of Service December 02, 2019 Coding Level of Care Code 80326 Subseq Hosp Care Lvl 3
[2019-12-03] MEDS ORDERED: MICONAZOLE NITRATE POWDER 43 GM EXT PRN (14:57)
--- NOTE | 2019-12-03 15:55 | Electrocardiogram Report ---
Test Reason : Blood Pressure : / mmHG Vent. Rate : 075 BPM Atrial Rate : 075 BPM P-R Int : 136 ms QRS Dur : 138 ms QT Int : 430 ms P-R-T Axes : 071 077 035 degrees QTc Int : 480 ms Normal sinus rhythm Right bundle branch block Abnormal ECG When compared with ECG of 01-DEC-2019 00:34, T wave inversion less evident in Anterior leads QT has shortened Confirmed by Braeden Hopper ([id number]) on 12/03/2019 3:55:16 PM Referred By: REFERRED SELF Confirmed By:Braeden Hopper
[2019-12-03] MEDS: ATORVASTATIN 40 MG TAB PO SCH (20:16)
[2019-12-03] MEDS: PANTOprazole 40 MG TAB PO SCH (20:16)
[2019-12-04 05:49] LABS: Hemoglobin 10.2 g/dL (12.0-16.0); Mean Corpuscular Hemoglobin 23.9 pg (25-34); Mean Corpuscular Volume 79.8 fL (80-100); Mean Platelet Volume 9.4 fL (7.4-10.4); Platelet Count 229 K/uL (130-400); RDW Coefficient of Variation 21.7 % (11.5-14.5); RDW Standard Deviation 62.9 fL (36.4-46.3); Red Blood Count 4.26 M/uL (4.2-5.4); White Blood Count 7.57 K/uL (4.8-10.8)
[2019-12-04] MEDS: HEPARIN SOD 5,000 UNIT/0.5 ML VIAL SQ SCH ×2 (06:16→13:20)
[2019-12-04] MEDS: LEVOTHYROXINE SODIUM 125 MCG TABLET PO SCH (06:17)
[2019-12-04 06:23] LABS: BUN Creatinine Ratio 21.5 (10-20); Est GFR (African American) 69.4; Est GFR (Non-African American) 59.9; Potassium 3.9 mmol/L (3.5-5.1)
--- NOTE | 2019-12-04 07:24 | Anesthesiology Consultation ---
Date of Service December 04, 2019 Assessment & Plan (1) Encounter for pre-operative examination: Chart Review Chart Review: Acceptable Risk for Surgery (elevated risk, but necessary procedure) and Patient NOT seen in Pre Admission Testing Consults Requested none cardiology following History Surgery Operation Date: 12/04/19 07:45 Proposed Procedures p Transesophageal Echo w/Anesthesia - Kamron Redman DO Height/Weight Height: 5 ft 2 in Weight: 139.7 kg Allergies Allergy/AdvReac Type Severity Reaction Status Date / Time Penicillins Allergy Mild tongue Verified 12/01/19 00:51 swelling sulfamethoxazole Allergy Mild RASH Verified 12/01/19 00:51 trimethoprim Allergy Mild RASH Verified 12/01/19 00:51 Bactrim Allergy Unknown RASH Verified 02/28/16 13:39 Tetracyclines Allergy Unknown Unknown Verified 12/01/19 00:51 doxycycline AdvReac Mild Rash Verified 12/01/19 00:51 Medications Home Medications Medication Instructions Recorded Confirmed Last Taken Probiotic Blend 1 cap PO Q OTHER DAY 09/30/19 12/01/19 10/06/19 amlodipine 10 mg PO QDL 09/30/19 12/01/19 10/08/19 12:00 aspirin [Aspirin Low Dose] 81 mg PO QPM 09/30/19 12/01/19 10/08/19 17:00 atorvastatin 80 mg PO HS 09/30/19 12/01/19 10/07/19 03:00 cholecalciferol (vitamin D3) 5,000 unit PO QDD 09/30/19 12/01/19 10/08/19 17:00 [Vitamin D3] fexofenadine [Charlee Allergy] 180 mg PO QPM 09/30/19 12/01/19 10/08/19 17:00 furosemide 20 mg PO Q OTHER DAY 09/30/19 12/01/19 10/06/19 levothyroxine 125 mcg PO QAM 09/30/19 12/01/19 10/08/19 05:30 lisinopril 40 mg PO QDL 09/30/19 12/01/19 10/08/19 12:00 nystatin 1 applic TOPICAL DAILY PRN 09/30/19 12/01/19 Unknown pantoprazole 40 mg PO HS 09/30/19 12/01/19 10/09/19 03:30 Active Medications Generic Name Dose Route Start Last Admin Trade Name Freq PRN Reason Stop Dose Admin Aspirin 81 mg 12/02/19 09:00 12/03/19 07:34 Ecotrin Ectab PO 01/01/20 08:59 81 mg QAM JAY Administration Atorvastatin Calcium 80 mg 12/01/19 21:00 12/03/19 20:16 Lipitor PO 12/31/19 20:59 80 mg HS JAY Administration Clopidogrel Bisulfate 75 mg 12/02/19 09:00 12/03/19 07:34 Plavix PO 01/01/20 08:59 75 mg QAM JAY Administration Heparin Sodium (Porcine) 5,000 units 12/03/19 14:00 12/04/19 06:16 Heparin Sodium (Porcine) SQ 01/02/20 13:59 5,000 units Q8 JAY Administration Insulin Aspart 0 units 12/01/19 21:00 12/03/19 20:16 Novolog Flexpen SC 12/31/19 20:59 Not Given ACHS JAY Labetalol HCl 5 mg 12/01/19 22:20 12/01/19 22:30 Normodyne IV 12/31/19 22:11 5 mg Q4H PRN Administration Hypertension Levothyroxine Sodium 125 mcg 12/01/19 06:30 12/04/19 06:17 Synthroid PO 12/31/19 06:29 Not Given DAILYBB JAY Lisinopril 40 mg 12/03/19 11:30 12/03/19 12:29 Zestril PO 01/02/20 11:29 40 mg QDL JAY Administration Pantoprazole Sodium 40 mg 12/01/19 21:00 12/03/19 20:16 Protonix PO 12/31/19 20:59 40 mg HS JAY Administration NPO Date Last Intake of Fluids: 12/03/19 Time Last Intake of Fluids: 20:20 Date Last Intake of Solids: 12/03/19 Time Last Intake of Solids: 20:20 Past Medical History Medical History (Updated 12/04/19 @ 07:24 by Pradeep Clark MD) Anemia Diabetes mellitus, type 2 ? was on metformin for years, taken off 3+yrs ago GERD (gastroesophageal reflux disease) Gout Hyperlipidemia Hypertension (Acute) Hypothyroidism Morbid obesity with BMI of 50.0-59.9, adult Osteoarthritis Stroke Past Family History Family History Grandfather (Maternal) Family history of diabetes mellitus Grandmother (Maternal) Family history of diabetes mellitus Aunt Family hx of colon cancer Other No family history of adverse response to anesthesia Past Surgical History Surgical History History of appendectomy History of bilateral tubal ligation History of cholecystectomy History of colonoscopy History of detached retina repair not sure which eye History of shoulder surgery right--bone spur removed History of tooth extraction History of total hysterectomy with bilateral salpingo-oophorectomy (BSO) Social History Smoking Status: Unknown if ever smoked Hx Alcohol Use: No Alcohol type: beer alcohol intake frequency: holidays/special occasions only Hx Substance Use: No substance use type: does not use Physical Exam Vital Signs Last Vital Signs Temp 36.8 C 12/04/19 04:03 Pulse 80 12/04/19 07:08 Resp 16 12/04/19 07:08 BP 212/97 H 12/04/19 07:08 Pulse Ox 97 12/04/19 07:08 Testing Laboratory Results 12/04/19 05:05 12/04/19 05:05 PT 10.9 Seconds (9.0-12.0) 12/01/19 00:38 INR 1.0 (0.9-1.1) 12/01/19 00:38 APTT 25.0 Seconds (21.0-31.0) 12/01/19 00:38 Hemoglobin A1c 5.6 % (4.5-5.6) 12/01/19 00:38 Blood Type O Positive 12/01/19 00:38 Antibody Screen NEGATIVE 12/01/19 00:38 12/03/19 20:11 POC Glucose 100 H Electrocardiogram Date: 12/03/19 Findings: + NSR @ (75) and + RBBB Chest X-Ray Date: 12/01/19 XR chest 1V portable HISTORY: Hypertension. COMPARISON: Chest 02/28/2016. FINDINGS: The heart remains mildly enlarged. There are no pleural effusions. No pneumothorax. Slight prominence of interstitial markings, unchanged. This is likely chronic. No new focal lung consolidations to suggest pneumonia. No evidence for pulmonary edema. IMPRESSION: No significant change compared to the prior study. No acute process. ACT 112: Negative or not required by law. Electronically signed by: Pradeep Walters M.D. 12/01/2019 7:46 AM Dictated: 12/01/19 0745 Transcribed: 12/01/19 0745 Echocardiogram Date: 12/01/19 EF: 60-65 Other Findings: + LVH Valvular Disease: + (mild) Other Testing CT head/brain wo con CT DOSE: 614.27 mGy.cm HISTORY: Mental status change 24h ffup study post tpa TECHNIQUE: Multiaxial CT images of the head were performed without the use of intravenous contrast. A dose lowering technique was utilized adhering to the principles of ALARA. Comparison: 12/01/2019 Findings: The paranasal sinuses and mastoid air cells are clear. The calvarium and skull base are intact. The ventricles and sulci are within normal limits. There is no mass, hematoma, midline shift, or acute infarct. Impression: No acute intracranial abnormality. ACT 112: Negative or not required by law. The above report was generated using voice recognition software. It may contain grammatical, syntax or spelling errors. Electronically signed by: Hudson Up M.D. 12/02/2019 6:42 AM Dictated: 12/02/19 0631 Transcribed: 12/02/19 0631 MR brain wo con HISTORY: cva TECHNIQUE: Multiplanar multisequence MRI of the brain was performed without the use of contrast. COMPARISON STUDY: None. FINDINGS: Diffusion images demonstrate small foci of acute ischemic change control analyst the left and to a lesser extent right lower parietal convexity. There is also 2 foci involving the right occipital lobe. Signal characteristics are otherwise indicated components of chronic small vessel change which are considered unremarkable for age. The ventricular system is midline. Sella and parasellar regions are unremarkable. IMPRESSION: Very small scattered cortical infarcts of the superior parietal lobes bilaterally as well as right occipital lobe. 2. This potentially represents a watershed versus embolic type process. 3. Age-related chronic small vessel change with the study otherwise negative. ACT 112: Negative or not required by law. The above report was generated using voice recognition software. It may contain grammatical, syntax or spelling errors. Electronically signed by: Hudson Up M.D. 12/01/2019 11:12 AM Dictated: 12/01/19 1109 Transcribed: 12/01/19 1109
--- NOTE | 2019-12-04 07:31 | Cardiology Progress Note ---
Date of Service December 04, 2019 Assessment & Plan (1) Stroke: (2) Hypertension: Informed consent for FABY obtained yesterday, form completed and on chart. Pt has no questions and again elects to proceed for assessment of cardiac source of cerebral embolism given MRI findings of infarcts in several vascular territories and nondiagnostic transthoracic echocardiogram. Will treat HTN as necessary for the procedure, already trending toward improvement. Subjective Chief Complaint: follow up left sided weakness Subjective: Patient feeling well. Seen in the cardiac procedure staging suite. No events noted overnight. SR noted on the monitor with RBBB morphology. SBP 212 on arrival to unit, down to 180 mg Hg on repeat. Mentating well. Moving all 4 extremities on command. No new neurological symptoms. Review of Systems Review of Systems: All systems reviewed & are unremarkable except as noted in HPI & below Physical Exam Physical Exam: Temp Pulse Resp BP Pulse Ox 36.8 C 80 16 212/97 H 97 12/04/19 04:03 12/04/19 07:08 12/04/19 07:08 12/04/19 07:08 12/04/19 07:08 Constitutional: WD/WN, vitals as above Respiratory: normal respiratory effort, lungs clear to auscultation Cardiovascular: Heart Sounds: + murmur (I/ SM) Gastrointestinal (Abdomen): normal bowel sounds, soft, nontender, no he patosplenomegaly Neurologic: PERRL, EOMI, accommodation nl, no face palsy, no dysarthria no focal motor deficits moves all 4 extremities Results & Data Vital Signs (Past 12 Hours) Vital Signs Temp Pulse Pulse Resp BP BP Pulse Ox 12/04/19 07:08 80 16 212/97 H 97 12/04/19 04:03 36.8 C 69 18 134/70 95 12/03/19 23:01 75 12/03/19 21:45 36.8 C 78 20 134/73 92 Laboratory Results CBC 12/04/19 Range/Units 05:05 WBC 7.57 (4.8-10.8) K/uL RBC 4.26 (4.2-5.4) M/uL Hgb 10.2 L (12.0-16.0) g/dL Hct 34.0 L (37-47) % Plt Count 229 (130-400) K/uL Comprehensive Metabolic Panel 12/03/19 12/04/19 Range/Units 06:16 05:05 Sodium 140 141 (136-145) mmol/L Potassium 4.1 3.9 (3.5-5.1) mmol/L Chloride 109 H 110 H (98-107) mmol/L Carbon Dioxide 26 27 (21-32) mmol/L BUN 20 H 21 H (7-18) mg/dl Creatinine 1.05 0.96 (0.6-1.2) mg/dl Glucose 109 H 111 H (70-99) mg/dl Calcium 8.9 9.0 (8.5-10.1) mg/dl Intake and Output 12/03/19 12/04/19 12/04/19 22:59 06:59 14:59 Intake Total 420 / 1240 0 / 1240 Balance 420 / 1038 0 / 1038 Intake: Oral 420 / 1240 0 / 1240 Other: Other Intake Source NPO # Unmeasured Voids 1 Weight 139.7 kg 139.7 kg Patient Weight 12/05/19 06:59 Weight 139.7 kg
[2019-12-04] MEDS ORDERED: PROPOFOL IV EMULSION 10 MG/ML 20 ML VIAL IV ONE (08:51)
--- NOTE | 2019-12-04 08:55 | Post Operative Brief Note ---
Cardiology Brief Post Op Date of Surgery December 04, 2019 Pre & Post Diagnosis Preprocedure diagnosis: Stroke to multiple cerebrovascular territories, rule out cardiac source of embolism, nondiagnostic transthoracic echocardiogram Post procedure diagnosis: Mild aortic valve sclerosis without stenosis, intact interatrial septum, no cardiac source of embolism identified Operation Date: 12/04/19 07:45 Procedure Transesophageal echocardiogram: After informed consent was obtained a timeout was performed the patient was sedated with the assistance of the anesthesia team receiving a total of 200 mg of IV propofol. There is no evidence of valvular vegetation. There is a small area of focal calcification noted on the aortic valve consistent with mild aortic valve sclerosis without stenosis. The interatrial septum is intact without evidence of atrial septal defect or PFO as demonstrated on 2D imaging, color flow Doppler, and with the administration of agitated saline contrast. The left atrial appendage was well visualized, with no evidence of thrombus. Very minimal atherosclerotic plaque was noted in the proximal ascending aorta, aortic arch, and descending thoracic aorta. Recommendations: Continue dual antiplatelet therapy with aspirin and clopidogrel. Continue statin therapy. The conclusion of the procedure the patient systolic blood pressure is 139 mmHg after having received sedation. Her blood pressure is to be reassessed after she receives her morning medications of amlodipine, and lisinopril which will be administered after her gag reflex returns. Hotel Custodian Kamron Redman DO Borough Coordinator Evonne Samson, RCS Estimated Blood Loss 0 Findings Consistent with Post-Op Diagnosis Anesthesia Type MAC
[2019-12-04] MEDS ORDERED: AMLODIPINE BESYLATE 5 MG TAB PO SCH (09:00)
--- NOTE | 2019-12-04 09:05 | Anesthesiology Progress Note ---
Date of Service December 04, 2019 Anesthesia Post Procedure Vital Signs Vital Signs: Temp Pulse Pulse Resp BP BP Pulse Ox 12/04/19 08:50 80 18 152/60 H 100 12/04/19 07:08 80 16 212/97 H 97 12/04/19 04:03 36.8 C 69 18 134/70 95 12/03/19 23:01 75 12/03/19 21:45 36.8 C 78 20 134/73 92 12/03/19 19:02 36.9 C 80 20 157/83 H 95 12/03/19 15:32 77 12/03/19 15:27 36.8 C 75 20 143/79 H 96 12/03/19 12:24 36.6 C 77 20 148/69 H 96 Pain Intensity Left Anterior Head: Pain Intensity: 0 Transfer of Care Handoff Completed per policy Notes Mental Status: alert / awake / arousable Patient Amnestic to Procedure: Yes Nausea / Vomiting: adequately controlled Pain: adequately controlled Airway Patency, RR, SpO2: stable & adequate BP & HR: stable & adequate Hydration State: stable & adequate Anesthetic Complications: no major complications apparent and Pt Satisfied with anesthetic care Notes: The patient is awake and comfortable.
[2019-12-04] MEDS: INSULIN ASPART 100 UNITS/ML 3 ML PEN SC SCH ×2 (09:29→12:13)
[2019-12-04] MEDS: ASPIRIN 81 MG ECTAB PO SCH (09:37)
[2019-12-04] MEDS: CLOPIDOGREL BISULFATE 75 MG TAB PO SCH (09:37)
--- NOTE | 2019-12-04 11:04 | Communication Note ---
Date of Service: December 04, 2019 Per pateint's request , I called her daughter , Alicia, and reviewed the FABY results. Continue current medication including aspirin 81 mg . Pt had apparently recently been off of aspirin for 7 days for oral surgery prior to her event. Clopidogrel 75 mg x 21 day as per neurology note.
[2019-12-04] MEDS: lisinopriL 40 MG TAB PO SCH (12:13)
[2019-12-04] MEDS ORDERED: STROKE PATIENT DISCHARGE STA (13:52)
--- NOTE | 2019-12-04 13:52 | Discharge Summary ---
Date of Service December 04, 2019 Admission HPI Per Admitting Provider History obtained from patient, family, and records. Medical history significant for hypertension, hyperlipidemia, hypothyroidism, GERD, CRI (baseline creatinine 1.3 ), chronic anemia (baseline hemoglobin of 11), DM 2 diet-controlled. Recent confinement 2003 for atypical chest pain. Normal stress echo. Around 11 PM last night, patient noted sudden onset left-sided weakness/numbness while on the commode. Some dizziness. No headache symptoms. No chest pain, no S OB. No prior episodes. Stroke alert called upon arrival at the ER. IV TPA administered following recommendations of [facility] tele-neurologist. Left-sided oral cavity bleeding noted at the ER post TPA administration. History dental surgery 4 days ago. Improvement of left-sided weakness as per patient. 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 Admission Exam Per Admitting Provider GENERAL: Comfortable, morbidly obese, slightly anxious, muffled speech from gauze in the mouth, no respiratory distress SKIN: Pallor , warm HEENT: Pale palpebral conjunctivae, no ptosis, blood soaked gauze per orem, dried blood right angle of the mouth NECK : Supple, short neck, no tenderness CHEST : Decreased breath sounds , no tenderness HEART : RRR, no obvious murmurs ABDOMEN: Some distention, nontender EXTREMITIES : Minimal LE swelling, no LE tenderness, no other conspicuous deformities noted NEUROLOGIC : Coherent, no facial asymmetry, MMTs BUE 4/5 Principal Diagnosis Acute cerebrovascular accident Discharge Exam Constitutional + well hydrated and + obese; no acute distress Eyes PERRL, conjunctivae normal, anicteric sclerae ENMT external ear and nose normal, oropharynx normal Respiratory normal respiratory effort, lungs clear to auscultation Cardiovascular RRR, no murmur, no edema Gastrointestinal (Abdomen) normal bowel sounds, soft, nontender, no hepatosplenomegaly Neurologic A0x3, power is 5/5 in UE, 4/5 in LLE, 5/5 in RLE, no sensory deficits noted, no dysarthria/aphasia/facial asymmetry Psychiatric A+Ox3, euthymic affect Discharge Data Allergies Allergy/AdvReac Type Severity Reaction Status Date / Time Penicillins Allergy Mild tongue Verified 12/01/19 00:51 swelling sulfamethoxazole Allergy Mild RASH Verified 12/01/19 00:51 trimethoprim Allergy Mild RASH Verified 12/01/19 00:51 Bactrim Allergy Unknown RASH Verified 02/28/16 13:39 Tetracyclines Allergy Unknown Unknown Verified 12/01/19 00:51 doxycycline AdvReac Mild Rash Verified 12/01/19 00:51 Consultations 12/01/19 00:57 ED Decision to Admit Stat 12/01/19 03:23 Consult Case Management - Discharge Planning Routine Consult Case Management - Discharge Planning Routine Consult Country Manager Routine Consult Neurology Routine 12/02/19 13:47 Consult Cardiology Routine 12/02/19 15:49 Consult Anesthesiology Routine Procedures Performed Operation Date: 12/04/19 07:45 Actual Procedures p Echo Transesophageal - DO loretta Coronel Echo Color Flow - DO loretta Coronel Echo Doppler Complete - Kamron Redman DO Ordered Studies 12/01/19 00:11 CT head/brain wo con Urgent Findings: The paranasal sinuses and mastoid air cells are clear. The calvarium and skull base are intact. There is no mass, hematoma, midline shift, acute infarct. White matter hypodensity is nonspecific but suggestive of microvascular ischemic change. The ventricles and sulci demonstrate mild age-related involutional changes. Impression: No acute intracranial abnormality. Atrophy and microvascular ischemic changes. 12/01/19 00:13 CT angio head w con Urgent FINDINGS: There is no mass, hematoma, midline shift, or acute infarct. Visualized intracranial internal carotid arteries, distal vertebral arteries, and basilar artery are widely patent. There is no significant stenosis, occlusion, or aneurysm seen within the bilateral ACAs, MCAs, or custom shop worker. IMPRESSION: No significant stenosis, occlusion, or aneurysm within the [place] gam[place] of Art. Moderate image compromise due to patient motion. CT angio neck with con Urgent FINDINGS: The aortic arch and proximal great vessels are widely patent. There is no significant stenosis, occlusion, or dissection identified within the bilateral common carotid, internal carotid, or vertebral arteries. IMPRESSION: No significant stenosis, occlusion, or dissection identified within the carotid or vertebral arteries. Mild atherosclerotic change bilaterally 12/01/19 02:22 CT head/brain wo con Urgent Findings: Slight increase in density of the transverse sinuses as well as in terhemispheric pain. This is felt to be technical. The calvarium and skull base are intact. The ventricles and sulci are within normal limits. There is no mass, hematoma, midline shift, or acute infarct. Impression: No acute intracranial abnormality. No change from the prior exam. 12/01/19 03:23 MR angio head wo con Routine FINDINGS: Visualized intracranial internal carotid arteries, distal vertebral arteries, and basilar artery are widely patent. There is no significant stenosis, occlusion, or aneurysm seen within the bilateral ACAs, MCAs, or custom shop worker. IMPRESSION: No significant stenosis, occlusion, or aneurysm within the port gam[place] of Art. MR brain wo con Routine FINDINGS: Diffusion images demonstrate small foci of acute ischemic jacquard loom card changer the left and to a lesser extent right lower parietal convexity. There is also 2 foci involving the right occipital lobe. Signal characteristics are otherwise indicated components of chronic small vessel change which are considered unremarkable for age. The ventricular system is midline. Sella and parasellar regions are unremarkable. IMPRESSION: 1. Very small scattered cortical infarcts of the superior parietal lobes bilaterally as well as right occipital lobe. 2. This potentially represents a watershed versus embolic type process. 3. Age-related chronic small vessel change with the study otherwise negative. 12/02/19 01:30 CT head/brain wo con Urgent Findings: The paranasal sinuses and mastoid air cells are clear. The calvarium and skull base are intact. The ventricles and sulci are within normal limits. There is no mass, hematoma, midline shift, or acute infarct. Impression: No acute intracranial abnormality. Hospital Course (1) Acute cerebrovascular accident: CT head showed no acute intracranial abnormality. Atrophy and microvascular ischemic changes. MRI head showed Very small scattered cortical infarcts of the superior parietal lobes bilaterally as well as right occipital lobe. Stroke alert called on admission and s/p TPA Was evaluated by neuro Repeat CT head post TPA protocol negative for any intracranial abnormality Currently on DAPT. (TTE) ECHO showed no wall motion abnormality with EF 60-65 % Cardiology consulted to eval for FABY for possible embolic event that might cause the CVA FABY done today did not show any intracardiac thrombus, no ASD. Had mild nonmobile atherosclerotic plaque on aortic arch Discharge on plavix 75mg daily to complete 21 days. Continue aspirin 81 mg daily Continue atorvastatin 80mg daily Follow up with neurology in 3-4 weeks Patient may need outpatient zio patch to assess for dysrrhythmias. Advised not to drive until cleared by Neurology or PCP (2) Hypertension BP elevated on admission Permissive hypertension was allowed initially on admission for the CVA Resumed amlodipine home dose today Continue lisinopril Continue management per PCP (3) Hypothyroidism Continue Levothyroxine 125mcg daily (4) Diabetes Hba1c 5.6 Not on any med BS well controlled (5) CKD3 Patient's GFR has always been 30-60 on review of labwork over the past couple of months on Pinger and [employer] Avoid nephrotoxins PT - home with OPPT. Script given for outpatient PT as needed Total Time Total Time Spent Total Time Spent (In Minutes): 40 Total Time Includes: Examination of the Patient, Discharge Planning and Medication Reconciliation Discharge Plan Discharge Items Patient Disposition: Home - Home Health Services Reason For Visit: CVA Discharge Diagnosis: Acute cerebrovascular accident Condition on Discharge: Fair Activity: Resume your previous activity Non-emergency contact: Primary Care Provider and Neurologist Call non-emergency contact if: you have any medication questions Follow-up/Referrals: Fany Mccartney DO [Primary Care Provider] - 12/09/19 12:45 pm Serafin Mckeon MD [Physician] - 01/15/20 10:40 am (follow up in 3-4 weeks) Diet: Regular, Carb Consistent or DM2 and Heart Healthy Addtl Attending Provider Instructions: Ms Rojas. You came to the hospital with complaint of sudden onset left sided weakness. You were evaluated and got TPA for an acute stroke. Your symptoms improved. You were extensively evaluated by Neurologist and Band Booker. You are to take aspirin and Clopidogrel (plavix) for a total of 21 days. Please follow up with Neurology within 3-[address]IVE until cleared by Neurology or your Primary doctor. It was a pleasure taking care of you. Pending Studies at Discharge: No Stand-Alone Forms: Medications to Prevent Stroke, [employer], Smoking Cessation Medications and DC Order Prescriptions: New clopidogrel 75 mg Tablet 75 mg PO QAM 18 Days Qty: 18 RF: 0 Continued atorvastatin 80 mg Tablet 80 mg PO HS RF: 0 fexofenadine [Charlee Allergy] 180 mg Tablet 180 mg PO QPM RF: 0 amlodipine 10 mg Tablet 10 mg PO QDL RF: 0 pantoprazole 40 mg Tablet,Delayed Release (Dr/Ec) 40 mg PO HS RF: 0 levothyroxine 125 mcg Tablet 125 mcg PO QAM RF: 0 nystatin 100,000 unit/gram Cream 1 applic TOPICAL DAILY PRN (Reason: Rash) RF: 0 furosemide 20 mg Tablet 20 mg PO Q OTHER DAY RF: 0 lisinopril 40 mg Tablet 40 mg PO QDL RF: 0 cholecalciferol (vitamin D3) [Vitamin D3] 125 mcg (5,000 unit) Tablet 5,000 unit PO QDD RF: 0 Probiotic Blend 2 billion cell-50 mg Capsule 1 cap PO Q OTHER DAY RF: 0 aspirin [Aspirin Low Dose] 81 mg Tablet,Delayed Release (Dr/Ec) 81 mg PO QPM 30 Days Qty: 30 RF: 1 Discharge Orders: Discharge Order (Routine); Ordered 12/04/19 Ordered By: Karen Brewer Admission Data Admit Date/Time: 12/01/19 02:07 Attending Provider: Karen Brewer I. Admit Provider: Conner Santos Primary Care Provider: Fany Mccartney Other Providers: Conner Santos ; Memo Coleman ; Serafin Mckeon ; Kamron Redman ; Ovi Zapata ; Anusha Justin ; [facility] Other Interventions: Discharge Summary Assessment (RN) Last Done: 12/04/19 14:31 DC Date/Time DO NOT enter until pt leaves facility: 12/04/19 14:50
--- NOTE | 2019-12-04 14:30 | Pharmacy Report ---
Pharmacist Stroke Counseling - Date of Service December 04, 2019 - Scope: Pharmacy has been consulted to provide medication discharge counseling for this patient admitted with ischemic stroke as per the Pharmacist Discharge Counseling for Stroke Patients Protocol. - Medications on Discharge: Home Medications Medication Instructions Recorded Confirmed Probiotic Blend 1 cap PO Q OTHER DAY 09/30/19 12/01/19 amlodipine 10 mg PO QDL 09/30/19 12/01/19 atorvastatin 80 mg PO HS 09/30/19 12/01/19 cholecalciferol (vitamin D3) 5,000 unit PO QDD 09/30/19 12/01/19 [Vitamin D3] fexofenadine [Charlee Allergy] 180 mg PO QPM 09/30/19 12/01/19 furosemide 20 mg PO Q OTHER DAY 09/30/19 12/01/19 levothyroxine 125 mcg PO QAM 09/30/19 12/01/19 lisinopril 40 mg PO QDL 09/30/19 12/01/19 nystatin 1 applic TOPICAL DAILY PRN 09/30/19 12/01/19 pantoprazole 40 mg PO HS 09/30/19 12/01/19 New Rx's Medication Instructions Recorded aspirin [Aspirin Low Dose] 81 mg PO QPM 30 Days #30 tab 12/04/19 clopidogrel 75 mg PO QAM 18 Days #18 tab 12/04/19 - Action: The above medications, specifically ones for stroke treatment/prophylaxis, have been reviewed in detail with the patient and/or patient real estate representative(s) prior to discharge. This includes indication, common adverse reactions, drug interactions, and medication administration. Medication counseling has been employed using the teach-back method to ensure understanding. - Outcome: The patient and/or patient real estate representative(s) have demonstrated understanding of the medications. Please note, they are aware that the pharmacist will call them within 72 hours post-discharge to confirm that the appropriate medications are being taken and answer any further medication related questions the patient might have at that time. Contact information Individual to be contacted: Radha Relationship to patient (if applicable): patient Phone number: [phone] Best time to call: anytime Additional comments: Patient to take Plavix for 18 more days along with aspirin 81 mg and then discontinue Plavix and continue aspirin thereafter. Patient demonstrated understanding of these instructions. Thank you for allowing pharmacy to be involved in the care of this patient. Please call [phone] or [phone] with any additional questions
--- NOTE | 2019-12-05 15:53 | Pharmacy Report ---
Pharmacist Post D/C Phone Note - Phone Note: Date of phone call: December 05, 2019. Individual with whom pharmacist spoke to: IESHA MEEHAN The following questions were reviewed during the phone call with responses listed below each: Can you tell me the medications that you are currently taking as well as when and how you take each medication? -See Table Below When have you missed any doses of your medications? - none What side effects are you having from your medications, specifically, the new medications you were started on? - none What questions do you have about your medications? - none What problems are you having obtaining your medications? - none - medications obtained When is your next appointment with your primary care doctor? - Sunday. Neurology appointment on January 14. Additional comments: - Patient picked up medications and took them today. No concerns at this point. Reminded patient that she has the phone number for our counseling pharmacist and can call if questions arise. As per the Pharmacist Discharge Counseling for Stroke Patients Protocol, this phone call has been completed within 72 hours of discharge. Thank you for allowing us to be involved in the care of this patient. - Home Medications: Home Medications Medication Instructions Recorded Confirmed Probiotic Blend 1 cap PO Q OTHER DAY 09/30/19 12/01/19 amlodipine 10 mg PO QDL 09/30/19 12/01/19 atorvastatin 80 mg PO HS 09/30/19 12/01/19 cholecalciferol (vitamin D3) 5,000 unit PO QDD 09/30/19 12/01/19 [Vitamin D3] fexofenadine [Charlee Allergy] 180 mg PO QPM 09/30/19 12/01/19 furosemide 20 mg PO Q OTHER DAY 09/30/19 12/01/19 levothyroxine 125 mcg PO QAM 09/30/19 12/01/19 lisinopril 40 mg PO QDL 09/30/19 12/01/19 nystatin 1 applic TOPICAL DAILY PRN 09/30/19 12/01/19 pantoprazole 40 mg PO HS 09/30/19 12/01/19 New Rx's Medication Instructions Recorded aspirin [Aspirin Low Dose] 81 mg PO QPM 30 Days #30 tab 12/04/19 clopidogrel 75 mg PO QAM 18 Days #18 tab 12/04/19
== END 2019-12-04 14:50 | disposition home health service (06) | DRG 62 ==
LOC: ED 00:16 → 1E 02:07 → SUATTDRO 02:07 → 1E 02:48 → 2N 12-02 14:46